=== PATIENT | female | born 1995 | race Caucasian/White ===

== ENCOUNTER 2016-10-16 19:03 | Emergency (ER) | payer BC, OTHER ==
[~2016-10-16] VITALS: Ht 172.7 cm; Wt 133.6 kg
[2016-10-16 19:19] VITALS: TEMP 37.2; Ht 172.7 cm; Wt 133.6 kg
[2016-10-16] MEDS ORDERED: PENI-82 PO (20:51)
--- NOTE | 2016-10-16 21:07 | EMERGENCY ROOM VISIT NOTE ---
History Report prepared by Rakan: Florian Chamberlain Under the Supervision of: Dr. Reg Jarrett M.D. First contact with patient: 20:52 Chief Complaint: CARDIAC ASSESSMENT Stated Complaint: CHEST PAINS COME AND GO OVER A WEEK History of Present Illness The patient is a 20 year old female who presents to the Emergency Room with complaints of worsening on and off chest pain for the past week. The patient states that she has episodes of chest pain that last for less than a minute, and they have been becoming more frequent. She additionally states that a week ago her left arm went numb. The patient also states that it is worsened after eating and while breathing. She additionally states that she is short of breath when the episodes of chest pain happen. The patient additionally states that she has a sore throat from strep throat, and she is nauseous, and is on antibiotics. The patient denies any chronic medical problems. She denies any leg pain, swelling, cough, and fever. Also, she denies any recent long trip or history of blood clots. Source of History: patient, spouse/significant other Onset: past week Position: chest Timing: worsening, other (on and off) Modifying Factors (Worsening): eating, breathing Associated Symptoms: + SOB, + numbness, No cough, No fevers Review of Systems See HPI for pertinent positives & negatives. A total of 10 systems reviewed and were otherwise negative. Past Medical & Surgical Medical Problems: (1) No pertinent past medical history Old medical records were reviewed. Nurse's notes were reviewed and I agree with. Denies history of cardiac disease, pulmonary disease, blood clots Family History Diabetes mellitus FH: heart disease Hypertension Kidney disease Kidney stones Social History Smoking Status: Never Smoker Marital Status: Housing Status: lives with family Occupation Status: employed Current/Historical Medications Scheduled Penicillin V Potassium (Veetids), 500 MG PO BID Allergies Coded Allergies: No Known Allergies (Unverified , 10/16/16) Physical Exam Vital Signs Date Time Temp Pulse Resp B/P Pulse Ox O2 Delivery O2 Flow Rate FiO2 10/17/16 00:49 83 20 147/99 98 10/16/16 23:01 76 19 107/70 97 Room Air 10/16/16 22:01 81 16 131/71 98 Room Air 10/16/16 21:12 85 10/16/16 21:01 69 17 134/94 100 Room Air 10/16/16 20:58 Room Air 10/16/16 20:58 85 24 166/93 97 Room Air 10/16/16 20:52 Room Air 10/16/16 19:19 37.2 63 20 135/85 100 Room Air Physical Exam General: Non-ill appearing young female in no acute distress. HEENT: Normal cephalic atraumatic. Pupils are equal round and reactive to light. Extraocular movements are intact. Oropharynx is pink with moist mucous membranes. No swelling of the mouth lips or tongue. Neck: Supple with a midline trachea. No meningeal signs or stiffness, no JVD or bruits. No Stridor. Chest: No shingles or rash. Not significantly tender. Clear to auscultation bilaterally. No wheezes or rhonchi. No increased work of breathing. Heart: regular rate and rhythm. Abdomen: Soft nontender, nondistended without rebound guarding or rigidity. Extremities: No cyanosis clubbing or edema. No calf tenderness or assymetry Spine/Back. Non tender to palpation. No CVA tenderness Skin: Good turgor without rashes. Neurologic exam: Cranial nerves two through 12 are intact. Motor and sensation are intact and symmetrical throughout. Medical Decision & Procedures ER Provider Diagnostic Interpretation: Radiology results as stated below per my review and radiologist interpretation: CTA CHEST: Comparison is made to chest radiograph dated 10/16/16. There is no evidence of acute pulmonary embolism, Main pulmonary artery enlargement, or right heart strain. Thoracic aorta is normal in course and caliber. Heart is normal in size , without pericardial effusion. There is small multi-compartmental mediastinal lymph nodes, not significant by size criteria. The lungs demonstrate mild patchy mosaic attenuation with geographic areas of lucency, which may represent obliterative small airways coracoclavicular vascular disease, but can also be a normal, incidental finding. No pleural effusion or pneumothorax. No pulmonary nodule or mass. There is less upper abdomen unremarkable. No acute osseous findings. Radiologist: Charles Cantu M.D. Laboratory Results 10/16/16 20:55 Red Blood Count 4.51, Mean Corpuscular Volume 88.2, Mean Corpuscular Hemoglobin 28.6, Mean Corpuscular Hemoglobin Concent 32.4, Mean Platelet Volume 8.9, Neutrophils (%) (Auto) 59.8, Lymphocytes (%) (Auto) 26.6, Monocytes (%) (Auto) 9.8, Eosinophils (%) (Auto) 3.2, Basophils (%) (Auto) 0.4, Neutrophils # (Auto) 6.26, Lymphocytes # (Auto) 2.78, Monocytes # (Auto) 1.03, Eosinophils # (Auto) 0.33, Basophils # (Auto) 0.04 10/16/16 20:55 Test 10/16/16 20:55 10/16/16 21:05 White Blood Count 10.46 K/uL (4.8-10.8) Red Blood Count 4.51 M/uL (4.2-5.4) Hemoglobin 12.9 g/dL (12.0-16.0) Hematocrit 39.8 % (37-47) Mean Corpuscular Volume 88.2 fL (80-100) Mean Corpuscular Hemoglobin 28.6 pg (25-34) Mean Corpuscular Hemoglobin Concent 32.4 g/dl (32-36) Platelet Count 318 K/uL (130-400) Mean Platelet Volume 8.9 fL (7.4-10.4) Neutrophils (%) (Auto) 59.8 % Lymphocytes (%) (Auto) 26.6 % Monocytes (%) (Auto) 9.8 % Eosinophils (%) (Auto) 3.2 % Basophils (%) (Auto) 0.4 % Neutrophils # (Auto) 6.26 K/uL (1.4-6.5) Lymphocytes # (Auto) 2.78 K/uL (1.2-3.4) Monocytes # (Auto) 1.03 K/uL (0.11-0.59) Eosinophils # (Auto) 0.33 K/uL (0-0.5) Basophils # (Auto) 0.04 K/uL (0-0.2) RDW Standard Deviation 42.9 fL (36.4-46.3) RDW Coefficient of Variation 13.2 % (11.5-14.5) Immature Granulocyte % (Auto) 0.2 % Immature Granulocyte # (Auto) 0.02 K/uL (0.00-0.02) Anion Gap 10.0 mmol/L (3-11) Est Creatinine Clear Calc Drug Dose 174.2 ml/min Estimated GFR () 134.2 Estimated GFR (Non- 115.8 BUN/Creatinine Ratio 14.2 (10-20) Calcium Level 8.5 mg/dl (8.5-10.1) Total Bilirubin 0.3 mg/dl (0.2-1) Direct Bilirubin < 0.1 mg/dl (0-0.2) Aspartate Amino Transf (AST/SGOT) 17 U/L (15-37) Alanine Aminotransferase (ALT/SGPT) 34 U/L (12-78) Alkaline Phosphatase 82 U/L (45-117) Total Creatine Kinase 105 U/L (26-192) Creatine Kinase MB < 0.5 ng/ml (0.5-3.6) Creatine Kinase MB Ratio (0-3.0) Total Protein 8.0 gm/dl (6.4-8.2) Albumin 3.7 gm/dl (3.4-5.0) Lipase 109 U/L (73-393) Human Chorionic Gonadotropin, Qual NEG (NEG) Bedside D-Dimer > 450 ng/mlFEU (0-450) Bedside Troponin I 0.000 ng/ml (0-0.045) Lab results as reviewed by me ECG Indication: chest pain Rate (beats per minute): 70 Rhythm: normal sinus, other (sinus arrhythmia) Findings: no acute ischemic change, no ectopy Comparison ECG Date: no prior available ED Course 2051: Past medical records reviewed. The patient was evaluated in room C11, and a complete history and physical examination were performed. 2210: I discussed getting a CT scan and the risks and benefits, and she agrees with the plan. 0031: Upon reevaluation, the patient is feeling better. I discussed the results and treatment plan with her. She verbalized agreement of the treatment plan. The patient was discharged home. Medical Decision Differentials include, but are not limited to; GERD, musculoskeletal, acute coronary syndrome, arrhythmia, PE, electrolyte or metabolic abnormality. This patient comes in as described above. She was placed on a panel monitor in room C11. She has been having intermittent chest pain for about a week and it only lasts a second or 2 .she looks well on exam. She's not hypoxemic and has stable vital signs. EKG does not suggest acute coronary syndrome or arrhythmia. Chest x-ray shows no evidence of pneumothorax, CHF, or pneumonia. She has no acute electrolyte or metabolic abnormalities and has nothing to suggest sepsis. She is not . Her d-dimer was elevated and in light of this, I did do a chest CT after explaining the risks and the benefits the patient who freely consents. The CAT scan shows no evidence of PE. She has some nonspecific findings. I do not think clinically she has pneumonia and she will be discharged home. I encouraged her follow-up with her regular doctor and return to the ER if: Worsening of symptoms, shortness of breath, any new problems or concerns. She was happy with the plan and was discharged to home Impression Primary Impression: Precordial chest pain Scribe Attestation The scribe's documentation has been prepared under my direction and personally reviewed by me in its entirety. I confirm that the note above accurately reflects all work, treatment, procedures, and medical decision making performed by me. Departure Information Dispostion Home / Self-Care Referrals Will Oakley M.D.([facility]) (PCP) Forms IMPORTANT VISIT INFORMATION Patient Instructions My [facility] Additional Instructions Rest. Drink plenty of fluids. Return if worsening of symptoms, shortness of breath, fever or chills, any new problems or concerns Follow-up with your doctor in 1-2 days for recheck.
[2016-10-16 21:10] LABS: BASO % 0.4 %; BASO ABS # 0.04 K/uL (0-0.2); COMPLETE YES; EOS % 3.2 %; HEMATOCRIT 39.8 % (37-47); IG% 0.2 %; LYMPH % 26.6 %; LYMPH ABS # 2.78 K/uL (1.2-3.4); MEAN CELL VOLUME 88.2 fL (80-100); MEAN CORPUSCULAR HEMOGLOBIN 28.6 pg (25-34); MEAN CORPUSCULAR HGB CONC 32.4 g/dl (32-36); MEAN PLATELET VOLUME 8.9 fL (7.4-10.4); MONO % 9.8 %; NEUT % 59.8 %; PLATELET COUNT 318 K/uL (130-400); RED BLOOD COUNT 4.51 M/uL (4.2-5.4); WHITE BLOOD COUNT 10.46 K/uL (4.8-10.8)
--- NOTE | 2016-10-16 21:27 | DIAGNOSTIC IMAGING REPORT ---
CHEST ONE VIEW PORTABLE CLINICAL HISTORY: CHEST PAIN dyspnea COMPARISON STUDY: No previous studies for comparison. FINDINGS: The bones soft tissues and hemidiaphragms are normal. The cardiomediastinal silhouette is normal. The lungs are clear. The pulmonary vasculature is normal. IMPRESSION: Negative chest. Electronically signed by: Keith Wei M.D. 10/16/2016 9:25 PM Dictated Date/Time: 10/16/2016 9:25 PM
[2016-10-16 21:30] LABS: PREG INTERNAL NEGATIVE QC NEG CLEAR BACKGROUND; PREG INTERNAL POSITIVE QC POS CONTROL LINE
[2016-10-16] MEDS ORDERED: OPTIRAY 320 IV PRN (22:30)
[2016-10-16 23:00] LABS: BLOOD UREA NITROGEN 11 mg/dl (7-18); BUN/CREATININE RATIO 14.2 (10-20); CALCIUM 8.5 mg/dl (8.5-10.1); CARBON DIOXIDE 29 mmol/L (21-32); CHLORIDE 104 mmol/L (98-107); CREATININE 0.74 mg/dl (0.60-1.20); GLUCOSE 91 mg/dl (70-99); POTASSIUM 3.6 mmol/L (3.5-5.1); SODIUM 143 mmol/L (136-145)
[2016-10-16 23:14] LABS: ALKALINE PHOSPHATASE 82 U/L (45-117); ALT/SGPT 34 U/L (12-78); AST/SGOT 17 U/L (15-37)
[2016-10-17 00:49] VITALS: BP 147/99; PULSE 83; O2SAT 98
--- NOTE | 2016-10-17 07:14 | DIAGNOSTIC IMAGING REPORT ---
CHEST CTA for PULMONARY ARTERIES CT DOSE: 719.96 mGy.cm HISTORY: Atypical chest pain. TECHNIQUE: Multiaxial CT images of the chest were performed following the intravenous administration of contrast to evaluate the pulmonary arteries. Maximal intensity projection images were also obtained. COMPARISON STUDY: None. FINDINGS: There is a normal caliber thoracic aorta with no evidence for dissection. There is no evidence for pulmonary embolus. No pleural effusions. No pneumothorax. A 1 cm left thyroid nodule. Hepatic steatosis. The spleen and adrenal glands appear unremarkable. A few scattered areas of air trapping within the lungs which could be a normal variant or related to small airways disease. No mediastinal or hilar lymphadenopathy. The central airways are patent. IMPRESSION: No evidence for pulmonary embolus. A few scattered areas of air trapping within the lungs which could be a normal variant or related to small airways disease. A 1 cm left thyroid nodule. Electronically signed by: Jeramy Koehler M.D. 10/17/2016 7:13 AM Dictated Date/Time: 10/17/2016 7:09 AM
== END 2016-10-17 00:50 | disposition home or self-care (01) ==
LOC: C.EDB 19:04 → C.EDC 10-17 00:50
DX: R07.2 Precordial pain (principal); Z83.3 Family history of diabetes mellitus; Z82.49 Family history of ischemic heart disease and other diseases of the circulatory system; Z84.1 Family history of disorders of kidney and ureter

== ENCOUNTER 2018-03-08 07:38 | Inpatient (IN) | payer BC, OTHER ==
[~2018-03-08] VITALS: Ht 172.7 cm; Wt 133.0 kg
[~2018-03-08 07:38] MED LIST: PENI-82 PO
[2018-03-08] MEDS ORDERED: DEXTROSE 5% 1000ML 1,000 ML IV SCH (08:08)
[2018-03-08] MEDS ORDERED: LACTATED RINGER'S 1000ML 1,000 ML IV PRN (08:08)
[2018-03-08] MEDS ORDERED: SODIUM CHLORIDE 0.9% 1000ML 1,000 ML IV SCH (08:08)
[2018-03-08] MEDS ORDERED: LACTATED RINGER'S 1000ML 500 ML IV PRN ×2 (08:11→12:35)
[2018-03-08] MEDS ORDERED: OXYTOCIN 30 UNITS/500ML NSS IV PRN ×2 (08:15→17:45)
[2018-03-08] MEDS ORDERED: DEXTROSE 50% 50 ML SYR IV PRN (08:15)
[2018-03-08 08:31] LABS: HEMATOCRIT 33.2 % (37-47); MEAN CELL VOLUME 84.7 fL (80-100); MEAN CORPUSCULAR HEMOGLOBIN 28.1 pg (25-34); MEAN CORPUSCULAR HGB CONC 33.1 g/dl (32-36); MEAN PLATELET VOLUME 9.2 fL (7.4-10.4); PLATELET COUNT 256 K/uL (130-400); RED CELL DISTRIBUTION WIDTH CV 14.9 % (11.5-14.5); RED CELL DISTRIBUTION WIDTH SD 45.9 fL (36.4-46.3); WHITE BLOOD COUNT 9.08 K/uL (4.8-10.8)
[2018-03-08 09:06] LABS: ALBUMIN 2.6 gm/dl (3.4-5.0); ALKALINE PHOSPHATASE 123 U/L (45-117); ALT/SGPT 17 U/L (12-78); AST/SGOT 18 U/L (15-37); BLOOD UREA NITROGEN 11 mg/dl (7-18); CALCIUM 8.8 mg/dl (8.5-10.1); CARBON DIOXIDE 21 mmol/L (21-32); CREATININE 0.55 mg/dl (0.60-1.20); GLUCOSE 68 mg/dl (70-99); POTASSIUM 3.7 mmol/L (3.5-5.1); SODIUM 136 mmol/L (136-145); TOTAL PROTEIN 6.9 gm/dl (6.4-8.2)
[2018-03-08] MEDS ORDERED: PRENTAB26 PO (09:12)
[2018-03-08] MEDS ORDERED: INSU100I2 SQ (09:12)
[2018-03-08] MEDS ORDERED: INSU100I23 SQ (09:12)
[2018-03-08 09:16] VITALS: Ht 172.7 cm; Wt 133.0 kg
[2018-03-08] MEDS: LACTATED RINGER'S 1000ML 1,000 ML IV SCH ×2 (09:27→15:46)
[2018-03-08] MEDS ORDERED: INSULIN REGULAR 250 UNITS in SODIUM CHLORIDE 0.9% 250ML 250 ML IV SCH (09:30)
[2018-03-08] MEDS ORDERED: BUPIVACAINE 0.25% 30 ML VIAL ONE (11:56)
[2018-03-08] MEDS ORDERED: EpHEDrine SULFATE INJ 50 MG/ML AMP ONE (11:57)
[2018-03-08] MEDS ORDERED: FENTANYL 2MCG/ML ROPIV 1.25MG/ML 100ML BAG ONE (11:57)
[2018-03-08] MEDS ORDERED: FENTANYL CITRATE INJ 50 MCG/1 ML 2 ML VIAL ONE (11:57)
[2018-03-08] MEDS ORDERED: NALOXONE HCL INJ 1 MG in SODIUM CHLORIDE 0.9% 1000ML 1,000 ML IV PRN (12:35)
[2018-03-08] MEDS ORDERED: FENTANYL 2MCG/ML ROPIV 1.25MG/ML 100ML BAG EPI PRN (12:45)
[2018-03-08] MEDS ORDERED: ONDANSETRON INJ 2 MG/ML 2 ML VIAL IV PRN (12:45)
[2018-03-08] MEDS ORDERED: NALBUPHINE HCL INJ 10 MG/ML 1ML AMP IV PRN (12:45)
[2018-03-08] MEDS ORDERED: EpHEDrine SULFATE INJ 50 MG/ML AMP IV PRN (12:45)
[2018-03-08] MEDS ORDERED: NALOXONE HCL INJ 0.4 MG/1 ML VIAL/CARP IV PRN (12:45)
[2018-03-08] MEDS ORDERED: DiphenhydrAMINE HCL 50 MG/ML VIAL IV PRN (12:45)
[2018-03-08] MEDS ORDERED: LACTATED RINGER'S 1000ML 1,000 ML IV SCH (17:32)
[2018-03-08] MEDS ORDERED: ACETAMINOPHEN 325 MG TAB PO PRN (17:45)
[2018-03-08] MEDS ORDERED: MEASLES, MUMPS & RUBELLA VIRUS VIAL SQ. ONE (17:45)
[2018-03-08] MEDS ORDERED: DIPHTHERIA/TETANUS/PERTUSSIS 0.5 ML SYR/VIAL IM. ONE (17:45)
[2018-03-08] MEDS ORDERED: OXYCODONE/ACETAMINOPHEN 5-325 TAB PO PRN (17:45)
[2018-03-08] MEDS ORDERED: HYDROCORTISONE ACETATE 25 MG SUPP PR PRN (17:45)
[2018-03-08] MEDS ORDERED: LANOLIN OINT EXT PRN (17:45)
[2018-03-08] MEDS ORDERED: SUPERCREAM 0.870 % 15GM JAR EXT PRN (17:45)
[2018-03-08] MEDS ORDERED: BENZOCAINE 20% AER SPR 82.5 GM CAN EXT PRN (17:45)
--- NOTE | 2018-03-08 18:40 | DELIVERY SUMMARY ---
DATE OF OPERATION: 03/08/2018 DATE OF DELIVERY: 03/08/2018 TIME OF DELIVERY OF BABY: 17:06 p.m. TIME OF DELIVERY OF PLACENTA: 17:27 p.m. DETAILS OF DELIVERY: The patient was found to be fully dilated and desired to push. She pushed through 4 contractions and delivered the head without difficulty. There was nuchal cord around the neck x2. Those were reduced. The Shoulders were delivered with minimal traction. Baby was handed off to the mother where mouth and nose were suctioned. Cord was clamped x2 and cut at 1-minute delay, and then cord blood was obtained. Vagina and perineum were checked for lacerations. There was a small second-degree laceration in the posterior vaginal wall. It was confirmed to be second degree with a rectal exam. Excellent sphincter tone was noted. Gloves were changed. There were first-degree labial lacerations bilaterally. The second-degree laceration was repaired with 2-0 Vicryl in a running-locked fashion and then the labial lacerations were repaired with 3-0 Vicryl on SH needle in a running fashion. Excellent hemostasis was achieved. Placenta was found to be in the vagina and delivered spontaneously as intact and complete. Fundus was firm. Lower segment was cleared off all clots and debris. EBL was 250 mL. Mom and baby tolerated the procedure well. Sponge, lap, needle count was correct x2. Baby was a viable female . Apgars 8/9. Weight is 2660 gr. No complications happened, and I was present during the whole procedure. I attest to the content of the Intraoperative Record and any orders documented therein. Any exceptions are noted below. MTDD
--- NOTE | 2018-03-08 18:58 | Anesthesia Procedure Note ---
Anesthesia Epidural Removal Nt Date & Time Mar 08, 2018 at 18:57 Vital Signs Pain Intensity: 0.0 Notes Mental Status: alert / awake / arousable, participated in evaluation Nausea / Vomiting: adequately controlled Pain: adequately controlled Airway Patency, RR, SpO2: stable & adequate BP & HR: stable & adequate Hydration State: stable & adequate Neuraxial Anesthesia: was administered, sensory block is resolving Anesthetic Complications: no major complications apparent, pt satisfied with anesthetic care Epidural: removed without complications, with tip intact Notes: small amount of bruising around epidural site. no back pain. no active bleeding.
[2018-03-08 19:55] VITALS: BP 102/55; PULSE 103; TEMP 36.8
[2018-03-08] MEDS ORDERED: DOCUSATE SODIUM 100 MG CAP PO SCH (20:00)
[2018-03-08] MEDS: IBUPROFEN 600 MG TAB PO PRN (23:26)
[2018-03-08 23:30] VITALS: BP 114/73; PULSE 87; TEMP 36.8
[2018-03-09 04:30] VITALS: BP 112/74; PULSE 84; TEMP 36.8
[2018-03-09 07:38] LABS: HEMATOCRIT 33.4 % (37-47); HEMOGLOBIN 10.6 g/dL (12.0-16.0)
[2018-03-09 08:00] VITALS: BP 111/73; PULSE 81; TEMP 36.7; O2SAT 99
[2018-03-09] MEDS ORDERED: PRENATAL VITAMIN TAB PO SCH (08:00)
[2018-03-09] MEDS ORDERED: FERROUS SULFATE 325 MG TAB PO SCH (08:00)
[2018-03-09] MEDS: IBUPROFEN 600 MG TAB PO PRN ×2 (09:02→17:00)
[2018-03-09] MEDS ORDERED: MTR600X PO (09:28)
--- NOTE | 2018-03-09 09:29 | Discharge Instructions ---
Discharge Instructions Date of Service Mar 09, 2018. Admission Reason for Admission: IUP Discharge Discharge Diagnosis / Problem: term delivered Discharge Goals Goal(s): Routine recovery after delivery Activity Recommendations Activity Limitations: as noted below Lifting Limitations: no more than 10 pounds Exercise/Sports Limitations: gradually increase as tolerated, until after follow-up appointment May Resume Sexual Activity: after follow-up appointment Shower/Bathe: no limitations Driving or Machine Use: resume 3 days after discharge . Instructions / Follow-Up Instructions / Follow-Up ACTIVITY RECOMMENDATIONS: * Gradual return to full activity over the next 2-3 weeks. * No lifting - nothing heavier than baby over the next 2-3 weeks. * Do not engage in vigorous exercise, sexual activity or sports until cleared by your physician. * Do not drive or operate any motorized equipment until cleared by your physician. * You may shower/bathe daily. BREAST CARE: If you are not breast feeding: * Wear a supportive bra 24 hours a day for one to two weeks. * Avoid stimulating your breasts and nipples as much as possible during the first few weeks after delivery. * When taking a shower, have the warm water hit your back, not breasts. * When your breasts feel full, apply ice packs. Usually three to four times a day helps ease the discomfort. * Take a mild pain medication (Tylenol/Motrin) when you are uncomfortable. If breast feeding: * Use breast milk to lubricate nipples. Lansinoh cream may be used for sore nipples. You do not need to remove cream prior to breast feeding. If using a different brand of cream, check the label for directions regarding removal of cream prior to nursing. * Wear a supportive bra. * If having problems with breasts or breast feeding, call a access consultant or your health care provider. EPISIOTOMY CARE: After delivery, if you have an episiotomy (stitches), the following steps will ease discomfort and aid healing. * For the first 24 hours after delivery, place ice packs next to your episiotomy to help reduce swelling. * After the first 24 hour-period, sitz baths, either portable or in the tub, are suggested. A shower with a shower arm sprayed over the episiotomy may be comforting. * Juhi care should be done after each voiding and bowel movement. Squirt warm water from a plastic bottle over the perineum (region of the body between the anus and urinary opening) and pat dry. * Use Dermoplast to ease discomfort. Shake container. [place] directly over the episiotomy. * Place a Tucks on a clean sanitary pad next to your episiotomy. OVER THE COUNTER MEDICATION: * For discomfort or pain, you may use Acetaminophen (Tylenol), Ibuprofen (Advil ), or Naproxen (Aleve) following the package directions. * For constipation you may use Colace following the package directions. SPECIAL CARE INSTRUCTIONS: When you are discharged from the hospital, it is important for you to follow the instructions listed below: * During the first week at home, you should be able to care for yourself and your baby. In addition, the usual light household activities are encouraged. * Limit your activities to the way you feel. Do not try to clean the house or move furniture. Be sensible. * If you actively engage in sports and have done so up until the time of your delivery, you may resume these activities as soon as you feel able. This may take up to one month or even longer. Use good judgment. * Continue to take your vitamins for at least six weeks after the of your baby. * Your diet need not be limited unless you were on a special diet before your delivery. Breast-feeding mothers need around 2500 calories per day and at least 64-80 ounces of fluid per day (8 to 10 glasses). * You should eat foods from the four major food groups. Crash diets or fad diets are to be avoided. Eating lean meats, fresh fruits and vegetables, low-fat dairy products, high fiber foods and a regular exercise program, will help you get back to your pre- weight without putting your health at risk. * Constipation is sometimes a problem after delivery. Take a mild laxative as needed. If breast feeding, Milk of Magnesia is acceptable to use. You may use a suppository or Fleets enema if no episiotomy. * A daily shower or tub bath is suggested. Be sure to thoroughly and gently dry the perineum. * A bloody vaginal discharge will usually continue until around four weeks post . A small amount of bleeding may continue for as long as six weeks. Vaginal discharge changes from the bright red bleeding after delivery to pink then brownish and finally yellowish-pink before becoming white and disappearing. * Bleeding may increase with activity. Your first period may come in 4-8 weeks. If you are breast feeding, your period may be delayed even longer. * Zephyr (sex) can begin whenever both you and your partner feel comfortable and do not have any form of genital infection. It is recommended that you wait until after your return appointment and discuss with your physician. If you have questions, please talk to your health care practitioner. A condom should be used to prevent infection and . * Foreplay, gentle intercourse and lubrication is very important the first several times to prevent pain. A water-based lubricant such as K-Y jelly or Astroglide may be used. * Tampons may be used six weeks after delivery. * Douching should be avoided for 6 weeks after delivery. * If you have RH negative blood and your baby is RH positive, you will receive RHOGAM by injection prior to discharge. The nurse will give you a card to keep with you that has the date and place that you received RHOGAM after delivery. * During your care, you had a Rubella screen done to check for the presence of rubella antibodies in your blood. If your test was negative, you will receive a Rubella vaccine prior to discharge. This vaccine may cause a fever, soreness at the injection site and flu-like symptoms. If these symptoms persist, notify your health care practitioner. is not advised for three months after a Rubella vaccine. There is a higher chance of having a baby with defects if conceived within three months of getting the vaccine. * If you were discharged 24 hours from delivery or before 48 hours: Visiting nurses will come to your home 48 hours after discharge to assess you and your baby. The visiting nurse will meet with you while you are in the hospital to arrange a time and get directions to your home. * Verbalizes understanding of car seat law as reviewed with patient nursing. * Car Seat hand-out given and reviewed with patient by nursing. * Shaken baby information reviewed with patient by nursing. Call you doctor if: * Heavy bleeding (saturating several pads an hour) or passing clots the size of your fist. * A fever >101 degrees F (38.3 degrees C) on two occasions four hours apart and/or chills. * Unusual pain in the pelvic or vaginal areas. * "Baby Blues" lasting longer than two weeks. If you have any questions or concerns, call your health care practitioner at . FOLLOW-UP VISIT: * Please call the office at to schedule a 6 week examination. It is important you keep this appointment. * It is important for you to make arrangements for either yearly or twice yearly check-ups thereafter. Current Hospital Diet Patient's current hospital diet: Regular OB Diet Discharge Diet Recommended Diet: Regular OB Diet Fluid Restriction: None Procedures Procedures Performed: vaginal delivery Pending Studies Studies pending at discharge: no Medical Emergencies . Who to Call and When: Medical Emergencies: If at any time you feel your situation is an emergency, please call 911 immediately. . Non-Emergent Contact Non-Emergency issues call your: Primary Care Provider . . "Provider Documentation" section prepared by Benigno López. .
--- NOTE | 2018-03-09 09:31 | OB/GYN Progress Note ---
RN NEONATAL Progress Note Date of Service Mar 09, 2018. Subjective conversation w/ patient, physical exam Ambulation: ambulating normally Voiding: no voiding problems Passing Gas: Yes Diet Tolerance: Regular Diet Lochia: Small Feeding Type: Breast Feeding Objective Vital Signs Date Time Temp Pulse Resp B/P (MAP) Pulse Ox O2 Delivery O2 Flow Rate FiO2 03/09/18 08:00 36.7 81 16 111/73 (86) 99 Room Air 03/09/18 04:30 36.8 84 18 112/74 (87) 03/08/18 23:30 36.8 87 18 114/73 (87) 03/08/18 23:30 Room Air 03/08/18 19:55 36.8 103 20 102/55 (71) 03/08/18 19:55 Room Air Physical Exam General Appearance: WELL-APPEARING, NO APPARENT DISTRESS Abdomen: non tender, soft Fundus: Firm Extremities: non-tender, normal inspection, no pedal edema Laboratory Results Last 24 Hours Test 03/08/18 10:20 03/08/18 11:21 03/08/18 12:38 03/08/18 13:46 Bedside Glucose 62 mg/dl 69 mg/dl 75 mg/dl 65 mg/dl Test 03/08/18 14:54 03/08/18 15:50 03/08/18 16:50 03/09/18 07:13 Bedside Glucose 77 mg/dl 81 mg/dl 73 mg/dl Hemoglobin 10.6 g/dL Hematocrit 33.4 % Assessment and Plan Post- Day Number: 1 Continue Routine Care: discharged
[2018-03-09 11:39] VITALS: BP 93/57; PULSE 81; TEMP 36.7; O2SAT 99
[2018-03-09 15:25] VITALS: BP 105/71; PULSE 86; TEMP 36.7; O2SAT 98
[2018-03-09] MEDS ORDERED: MEASLES, MUMPS & RUBELLA VIRUS VIAL SQ. ONE (18:13)
[2018-03-09 19:50] VITALS: BP_DIAS 71; PULSE 86; TEMP 36.7
[2018-03-09] MEDS ORDERED: BISACODYL 5 MG TABEC PO SCH (20:00)
[2018-03-10] MEDS ORDERED: BISACODYL 10 MG SUPP PR PRN (07:00)
== END 2018-03-09 19:50 | disposition home or self-care (01) | DRG 775 ==
LOC: C.LD 07:38 → C.OBG 20:52
PROVIDERS: ADMIT Obstetrics & Gynecology; ATTEND Obstetrics & Gynecology
PROC: 10E0XZZ Delivery of Products of Conception, External Approach (ICD-10-PCS; principal; 2018-03-08)
PROC: 3E033VJ Introduction of Other Hormone into Peripheral Vein, Percutaneous Approach (ICD-10-PCS; principal; 2018-03-08)
PROC: 10907ZC Drainage of Amniotic Fluid, Therapeutic from Products of Conception, Via Natural or Artificial Opening (ICD-10-PCS; principal; 2018-03-08)
PROC: 0KQM0ZZ Repair Perineum Muscle, Open Approach (ICD-10-PCS; principal; 2018-03-08)
DX: O24.424 Gestational diabetes mellitus in childbirth, insulin controlled (principal); O69.81X0 Labor and delivery complicated by cord around neck, without compression, not applicable or unspecified; O70.1 Second degree perineal laceration during delivery; O99.214 Obesity complicating childbirth; E66.9 Obesity, unspecified; Z68.41 Body mass index [BMI] 40.0-44.9, adult; Z3A.39 39 weeks gestation of pregnancy; Z37.0 Single live birth; Z79.4 Long term (current) use of insulin

== ENCOUNTER 2019-01-24 17:46 | Inpatient (IN) ==
[2019-01-24] MEDS ORDERED: HYDROmorphone INJ 1 MG/ML SYRINGE IM PRN (18:26)
[2019-01-24] MEDS: LACTATED RINGER'S 1,000 ML IV PRN (18:49)
[2019-01-24] MEDS: ONDANSETRON INJ 2 MG/ML 2 ML VIAL IV PRN ×2 (18:50→23:54)
[2019-01-24 19:00] LABS: Basophils # (auto) 0.01 K/uL (0-0.2); Basophils % (auto) 0.1 %; Eosinophils # (auto) 0.04 K/uL (0-0.5); Eosinophils % (auto) 0.3 %; Hematocrit (blood only) 34.3 % (37-47); Hemoglobin 11.5 g/dL (12.0-16.0); Immature Granulocytes # (auto) 0.05 K/uL (0.00-0.02); Immature Granulocytes % (auto) 0.3 %; Lymphocytes # (auto) 1.45 K/uL (1.2-3.4); Mean Corpuscular Volume 85.5 fL (80-100); Mean Platelet Volume 9.4 fL (7.4-10.4); Monocytes # (auto) 1.37 K/uL (0.11-0.59); Monocytes % (auto) 9.5 %; Neutrophils # (auto) 11.56 K/uL (1.4-6.5); Neutrophils % (auto) 79.8 %; Platelet Count 235 K/uL (130-400); RDW Coefficient of Variation 14.3 % (11.5-14.5); RDW Standard Deviation 44.2 fL (36.4-46.3); Red Blood Count 4.01 M/uL (4.2-5.4); White Blood Count 14.48 K/uL (4.8-10.8)
[2019-01-24 19:04] LABS: Mean Corpuscular Hgb Conc 33.5 g/dL (32-36)
[2019-01-24 19:12] LABS: Potassium 3.3 mmol/L (3.5-5.1)
--- NOTE | 2019-01-24 19:50 | Ultrasound Report ---
ULTRASOUND KIDNEYS AND BLADDER CLINICAL HISTORY: Right flank pain. . COMPARISON STUDY: Renal ultrasound dated 01/21/2019. TECHNIQUE: Real-time, grayscale, and color flow sonography of the kidneys and bladder is performed. I mages are reviewed in the transverse and longitudinal planes. FINDINGS: Kidneys: The kidneys appear slightly enlarged and are normal in echotexture. The right kidney measure s 15.7 cm in length and the left kidney measures 14.3 cm in length. There is mild right-sided hydrone phrosis. No hydronephrosis is seen on the left. No shadowing renal calculi are identified. There is n o sonographic evidence of contour deforming renal mass lesion. No perinephric fluid is identified. Bladder: The bladder is decompressed and could not be evaluated. IMPRESSION: 1. There has been no significant change from 01/21/2019. Right-sided hydronephrosis persists. 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 Although no shadowing renal calculi are identified , nephrolithiasis would be impossible to exclude. Clinical correlation will be required. 2. There is no left-sided hydronephrosis. 3. The bladder was decompressed and could not be evaluated. Electronically signed by: Tez Carr M.D. 01/24/2019 7:49 PM
[2019-01-24] MEDS: cefTRIAXone SODIUM 2,000 MG in DEXTROSE 5% 50 ML IV SCH (21:22)
[2019-01-24] MEDS: DOCUSATE SODIUM 100 MG CAP PO SCH (21:27)
[2019-01-24] MEDS ORDERED: HYDROmorphone INJ 1 MG/ML SYRINGE IV PRN (22:04)
[2019-01-24] MEDS: OXYCODONE/APAP 7.5/325MG TAB PO PRN (23:54)
--- NOTE | 2019-01-25 01:18 | Consultation Report ---
DATE OF CONSULTATION: 01/24/2019 CHIEF COMPLAINT: Right flank pain. HISTORY OF PRESENT ILLNESS: This is a 23-year-old female 34 weeks , morbid obesity, who presents with right flank pain. The patient says that she has developed this pain about last Monday, but it resolved, but since Monday it is constant and on Monday she came to the ER, although workup was done which was unrevealing,with renal ultrasound showing right hydronephrosis possibly mass effect from gravid uterus or from renal stone and she was sent home, but since then pain is not getting better. She went to [facility] yesterday and was given a Percocet. She had some nausea and she had episode of vomiting. When she vomited she had some epistaxis, but that resolved. As symptoms are not getting better she came to the hospital again today. Her monitoring was done in [facility] unit and also they are doing NST testing q. shift and that seemed to be okay. Renal ultrasound was done again today. This again showed same right hydronephrosis possibly from mass effect from the gravid uterus, nephrolithiasis would be impossible to exclude, so the patient was transferred to medical floor for further management and we were consulted. The patient states she still has some pain, moderate in severity, radiating from right flank, to groin. She also says she has some burning micturition now, afebrile. Urinalysis done on 01/21/2019 showed some hematuria. Otherwise, patient is doing fine. Denies any headache, no blurred vision. No earache, no runny nose, no sore throat, no difficulty swallowing. No chest pain, no shortness of breath, no cough. She is constipated since Monday . She has taken some stool softener today. Currently resting comfortably and hemodynamically stable. ALLERGIES: No known drug allergies. PAST MEDICAL HISTORY: As mentioned above. PAST SURGICAL HISTORY: None. MEDICATIONS: The patient is on vitamins and vitamin D. FAMILY HISTORY: Significant for father had heart attack. Mother had kidney stones. Paternal grandfather and maternal grandmother has heart disorder. SOCIAL HISTORY: . No smoking, alcohol or drug use. REVIEW OF SYMPTOMS: As per HPI. Rest of systems negative. PHYSICAL EXAMINATION: GENERAL: The patient is morbidly obese, not in acute distress. VITAL SIGNS: Temperature 36.7, pulse 86, respiratory rate 22, blood pressure 119/73, oxygen 96% room air. HEENT: Atraumatic. Extraocular muscles intact. NECK: No JVD. No neck masses. Supple. CARDIOVASCULAR: S1, S2, regular rate and rhythm, no murmur, no gallop. RESPIRATORY SYSTEM: Normal AP diameter. No accessory muscle use. No wheezing, no crackles. ABDOMEN: 34-week . Right CVA tenderness present. CENTRAL NERVOUS SYSTEM: Nonfocal. EXTREMITIES: No edema, no erythema. LABORATORY DATA: WBC 14, hemoglobin 11.5, hematocrit 34.3, platelets 235. Sodium 138, potassium 3.3, chloride 105, bicarbonate 23. Renal ultrasound shows no significant change from 01/21/2019, right-sided hydronephrosis persists. This may be related to mass effect from the gravid uterus, although no shadowing of renal calculi identified. Nephrolithiasis could be impossible to exclude, clinical correlation will be required. No left-sided hydronephrosis. The bladder was decompressed and could not be evaluated. ASSESSMENT AND PLAN: This is a 23-year-old female with a 34 weeks' , presents with right flank pain. 1. Right flank pain,right-sided hydronephrosis, possible mass effect from gravid uterus or possible kidney stone . Pain control, fluids ordered as per the [facility]. We will consult Urology for further opinion regarding the ultrasound findings. We will also get urinalysis and urine cultures. The patient is already started on Rocephin. 2. Leukocytosis. We will follow repeat labs in a.m.On Rocephin. 3. , 34 weeks . management as per [facility]. She is getting q. shift NST test. 4. Deep venous thrombosis prophylaxis and disposition as per [facility]. MTDD
[2019-01-25] MEDS: LACTATED RINGER'S 1,000 ML IV PRN (02:18)
[2019-01-25 05:41] LABS: Basophils # (auto) 0.02 K/uL (0-0.2); Basophils % (auto) 0.2 %; Eosinophils # (auto) 0.14 K/uL (0-0.5); Eosinophils % (auto) 1.4 %; Hematocrit (blood only) 30.1 % (37-47); Hemoglobin 9.9 g/dL (12.0-16.0); Immature Granulocytes # (auto) 0.03 K/uL (0.00-0.02); Immature Granulocytes % (auto) 0.3 %; Lymphocytes # (auto) 2.35 K/uL (1.2-3.4); Lymphocytes % (auto) 23.9 %; Mean Corpuscular Hgb Conc 32.9 g/dL (32-36); Mean Corpuscular Volume 86.2 fL (80-100); Mean Platelet Volume 9.4 fL (7.4-10.4); Monocytes # (auto) 1.19 K/uL (0.11-0.59); Monocytes % (auto) 12.1 %; Neutrophils # (auto) 6.12 K/uL (1.4-6.5); Neutrophils % (auto) 62.1 %; Platelet Count 199 K/uL (130-400); RDW Coefficient of Variation 14.5 % (11.5-14.5); Red Blood Count 3.49 M/uL (4.2-5.4); White Blood Count 9.85 K/uL (4.8-10.8)
[2019-01-25 05:55] LABS: Appearance Urine Cloudy (Clear); Bacteria Urine Automated Negative (Negative); Blood Urine Trace (Negative); Color Urine Dark Yellow; Epithelial Cell Urine Auto >30 /lpf (0-5); Glucose Urine UA Negative (Negative); Ketones Urine 1+ (Negative); Leukocyte Esterase Urine Trace (Negative); Nitrite Urine Negative (Negative); Protein Urine 1+ (Negative); Specific Gravity Urine 1.033 (1.000-1.030); Urobilinogen Urine Negative (Negative); pH Urine 5.5 (4.5-7.5)
[2019-01-25 05:58] LABS: Bilirubin Urine 1+ (Negative)
[2019-01-25 06:00] LABS: Ictotest Urine Positive (Negative)
[2019-01-25 06:07] LABS: BUN Creatinine Ratio 13.3 (10-20); Calcium 8.4 mg/dl (8.5-10.1); Creatinine Clr Calc Pharmacy 153.2 ml/min; Est GFR (African American) 121.4; Est GFR (Non-African American) 104.8; Magnesium 1.7 mg/dl (1.8-2.4); Potassium 3.4 mmol/L (3.5-5.1)
[2019-01-25 06:09] LABS: Cast Urine Automated 0 /lpf (0-5); Mucus Urine Present (None Prsent)
--- NOTE | 2019-01-25 07:46 | Urology Consultation ---
Date of Consultation January 25, 2019 Assessment & Plan (1) Right flank pain: 23yo F, 34 weeks with R sided hydro, renal colic. Renal US - right sided hydro stable on imaging from 01/21 and 01/24. No stone visible on ultrasound. Normal kidney function, lack of fevers are encouraging. Strain all urine, continue IVFs. Continue broad spectrum abx while awaiting UC&S. We discussed options. Pt understands that it is difficult to assess whether patient is definitively passing a stone without CT/MRI imaging. Pain appears to be well controlled presently, however she is requiring narcotic medication consistently to do so. We briefly discussed ureteral stenting/ureteroscopy with risk of premature labor vs nephrostomy for uncontrolled pain. Dr. Gregorio made aware of patient situation. Will assess patient soon. She is currently NPO awaiting our recommendations. Discussed options with patient . She wants to avoid intervention if possible and understands if pain worsens she will need Low dose CT to assess for stone and either stent , percutaneous nephrostomy or ureteroscopy if positive . Would be best to do this at 36 weeks if necessary to minimize risk of premature delivery. If pain is from hydro of then she would need to manage hernandez again or have stent or percutaneous nephrostomy Per Dr. Gregorio - evaluated patient with Dr. Grimm. Discussed that intervention may require transfer to [facility]. Try to minimize narcotic pain control. However if pain does come back again requiring evaluation, Dr. Gregorio would recommend low-dose non-contrast CT to help determine if intervention is required at that time. Pt verbalizes understanding. No surgical intervention today. Pt will continue to push hydration as allowable by [facility]. Strain urine if possible. Abx per primary team. History of Present Illness Reason for Consultation: 34 weeks , Right hydronephrosis Requesting Physician: Dr. Grimm Attending Physician: Anjel Grimm MD History of Present Illness 23yo F, whom is 34 weeks presents to [facility] last evening for intractable Right flank pain. She was first evaluated in ED on 01/21, she states "i thougth I was in labor". .Diagnosed with mild R hydronephrosis, no visible stones, discharged home. She was then evaluated by [facility], prescribed Percocet for pain control. Unfortunately pain was not controlled and made her very nauseated, prompting re-evaluation. She spent last night monitored in L&D on m onitoring, then moved to standard bed today. She appears nontoxic on exam, but sitting in pretzel position in bed which she states is most comfortable. Rating pain 3-4/10, right flank pain is constant, sharp. Pain is currently controlled on Percocet 7.5mg/zofran combination. She was able to get some rest last evening. She is now describing some dysuria. Denies urgency/frequency. Denies gross h ematuria. UA with trace leuks, no nitrites. UC&S is pending - currently on IV ceftriaxone. This is her 3rd , first time with complications. Both mother and father are stone formers, states "my mom would get them all the time". Unsure of composition. Allergies Allergy/AdvReac Type Severity Reaction Status Date / Time No Known Allergies Allergy Verified 01/24/19 18:20 Home Medications Home Medications Medication Instructions Recorded Confirmed Type PNV cmb#95-ferrous fumarate-FA 1 tab PO DAILY 01/20/19 01/24/19 History [] cholecalciferol (vitamin D3) 1,000 unit PO DAILY 01/20/19 01/24/19 History [Vitamin D3] Patient History Medical History Gestational diabetes Spontaneous vaginal delivery [facility] 2011, [facility] 2017 Family History Mother Kidney stones Social History Preferred Language: Vietnamese marital status: Current Living Situation: Family current occupational status: unemployed Feels Safe at Home: Yes Safety Concerns: Feels Safe At This Time Smoking Status: Never smoker Do You Dip or Chew Tobacco: No Second Hand Exposure: Yes Tobacco Cessation Education Requested by Patient: No Hx Alcohol Use: No Hx Substance Use: No Review of Systems Constitutional: no fever and no chills Eyes: + corrective lenses; no diplopia Ear, Nose, Mouth, Throat: no ear pain and no tinnitus Respiratory: no cough and no hemoptysis Cardiovascular: no chest pain and no dyspnea at rest Gastrointestinal: no abdominal pain, no nausea and no vomiting 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 Genitourinary: + dysuria and + flank pain (right); no urinary frequency, no urinary urgency and no nocturia Musculoskeletal: no neck pain Integumentary: no acne and no rash Neurologic: no falls and no paralysis Psychiatric: no hopelessness Endocrine: no fatigue and no polydipsia Hematologic / Lymphatic: no easy bleeding and no coagulopathy Physical Exam Constitutional: no acute distress and not thin uterus Eyes: no nystagmus ENMT: Ears: no hearing impairment and no TM abnormality Neck: trachea midline Respiratory: no respiratory distress and does not use accessory muscles Cardiovascular: Vessels: no JVD Chest (Breasts): Chest: no mass Gastrointestinal (Abdomen): Inspection/Auscultation: abdomen not distended and no abdominal edema Percussion/Palpation: abdomen soft; abdomen nontender Musculoskeletal: Head/Neck/Chest: normocephalic and head atraumatic Skin: no rashes and no ulcers Neurologic: awake; not confused and not obtunded Psychiatric: Orientation: alert and oriented x 3 Eye Contact: + not good eye contact Genitourinary: no CVA tenderness Results & Data Vital Signs (Past 12 Hours) Vital Signs Temp Pulse Pulse Resp BP BP Pulse Ox 01/25/19 07:03 36.7 C 71 20 111/74 97 01/24/19 22:47 36.7 C 22 119/73 96 01/24/19 19:52 86 133/71 Laboratory Results Laboratory Results - last 48 hr 01/24/19 01/24/19 01/25/19 18:47 18:47 05:15 WBC 14.48 H RBC 4.01 L Hgb 11.5 L Hct 34.3 L MCV 85.5 MCH 28.7 MCHC 33.5 RDW Std Deviation 44.2 RDW Coeff of Zia 14.3 Plt Count 235 MPV 9.4 Immature Gran % (Auto) 0.3 Neut % (Auto) 79.8 Lymph % (Auto) 10.0 [place] % (Auto) 9.5 Eos % (Auto) 0.3 Baso % (Auto) 0.1 Immature Gran # (Auto) 0.05 H Neut # (Auto) 11.56 H Lymph # (Auto) 1.45 [place] # (Auto) 1.37 H Eos # (Auto) 0.04 Baso # (Auto) 0.01 Sodium 138 Potassium 3.3 L Chloride 105 Carbon Dioxide 23 Anion Gap 10.0 BUN Creatinine Est Cr Clr Drug Dosing Est GFR ( Amer) Est GFR (Non-Af Amer) BUN/Creatinine Ratio Glucose Calcium Magnesium Urine Color Dark Yellow Urine Appearance Cloudy A Urine pH 5.5 Ur Specific [place] 1.033 H Urine Protein 1+ H Urine Glucose (UA) Negative Urine Ketones 1+ H Urine Blood Trace H Urine Nitrite Negative Urine Bilirubin 1+ H Urine Urobilinogen Negative Ur Leukocyte Esterase Trace H Urine WBC (Auto) 10-30 H Urine RBC (Auto) 5-10 H U Hyaline Cast (Auto) 0 U Epithel Cells (Auto) >30 H Urine Bacteria (Auto) Negative Urine Mucus Present A 01/25/19 01/25/19 05:19 05:19 WBC 9.85 RBC 3.49 L Hgb 9.9 L Hct 30.1 L MCV 86.2 MCH 28.4 MCHC 32.9 RDW Std Deviation 45.0 RDW Coeff of Zia 14.5 Plt Count 199 MPV 9.4 Immature Gran % (Auto) 0.3 Neut % (Auto) 62.1 Lymph % (Auto) 23.9 [place] % (Auto) 12.1 Eos % (Auto) 1.4 Baso % (Auto) 0.2 Immature Gran # (Auto) 0.03 H Neut # (Auto) 6.12 Lymph # (Auto) 2.35 [place] # (Auto) 1.19 H Eos # (Auto) 0.14 Baso # (Auto) 0.02 Sodium 137 Potassium 3.4 L Chloride 106 Carbon Dioxide 26 Anion Gap 5.0 BUN 10 Creatinine 0.79 Est Cr Clr Drug Dosing 153.2 Est GFR ( Amer) 121.4 Est GFR (Non-Af Amer) 104.8 BUN/Creatinine Ratio 13.3 Glucose 91 Calcium 8.4 L Magnesium 1.7 L Urine Color Urine Appearance Urine pH Ur Specific [place] Urine Protein Urine Glucose (UA) Urine Ketones Urine Blood Urine Nitrite Urine Bilirubin Urine Urobilinogen Ur Leukocyte Esterase Urine WBC (Auto) Urine RBC (Auto) U Hyaline Cast (Auto) U Epithel Cells (Auto) Urine Bacteria (Auto) Urine Mucus
[2019-01-25] MEDS: CHOLECALCIFEROL 1,000 UNITS TAB PO SCH (08:20)
[2019-01-25] MEDS: PRENATAL VITAMIN 1 TAB PO SCH (08:20)
[2019-01-25] MEDS: DOCUSATE SODIUM 100 MG CAP PO SCH ×2 (08:23→21:06)
[2019-01-25] MEDS: OXYCODONE/APAP 7.5/325MG TAB PO PRN ×3 (08:33→21:29)
--- NOTE | 2019-01-25 08:42 | Progress Note ---
Date of Service January 25, 2019 Subjective REVIEW SPECIALIST NOTE Pt doing well pain is improved with Percocet FHR; CAT1 On Rocephin IV Urology consult placed by Hospitalist Will continue NST Q shift No ctx on Monitor or reported by pt Results & Data Vital Signs (Past 12 Hours) Vital Signs Temp Pulse Resp BP Pulse Ox 01/25/19 07:03 36.7 C 71 20 111/74 97 01/24/19 22:47 36.7 C 22 119/73 96
[2019-01-25] MEDS ORDERED: cefTRIAXone SODIUM 2,000 MG in DEXTROSE 5% 50 ML IV SCH ×2 (09:00→21:00)
--- NOTE | 2019-01-25 09:14 | History and Physical Report ---
DATE OF ADMISSION: 01/24/2019 HISTORY OF PRESENT ILLNESS: The patient is a 23-year-old G3, P2, due date 03/06/2019, making her 34 weeks and 1 day who was admitted on 01/24/2019 for right-sided abdominal pain. On arrival to labor and delivery, she had no shortness of breath, no chills, no fever. The patient, however, had right-sided CVA tenderness. The pain was radiating from the back to the groin. The patient had been seen a couple of days earlier for the same thing and I have been discharged home. There was no gross hematuria. She denied any dysuria or frequency. Workup included a CBC, complete chemistry and a renal ultrasound. Renal ultrasound did not see a renal stone, but, however, did confirm hydronephrosis. The patient was admitted for observation with IV fluids and pain management. After receiving 1 dose of Dilaudid, the patient has been remarkably improved. heart tracing was category 1. COURSE: Has been unremarkable. PAST MEDICAL HISTORY: History of obesity and gestational diabetes in previous . She is, however, not gestational diabetic in this . PAST SURGICAL HISTORY: None. SOCIAL HISTORY: The patient denies tobacco, drug or alcohol use. FAMILY HISTORY: Noncontributory. PHYSICAL EXAMINATION: GENERAL: Well-developed, well-nourished white female in no acute distress. HEART: S1, S2, regular rhythm and rate. LUNGS: Clear to auscultation bilaterally. ABDOMEN: Gravid. PELVIC: Deferred. EXTREMITIES: No cyanosis, clubbing, edema. Feet heart tracing, no contractions seen on monitor. ASSESSMENT AND PLAN: A 23-year-old G3, P2 at 34 weeks and 1 with right-sided pain. Diagnosis at this point is suspected renal stones. The patient is admitted, will be given IV fluids and pain management.
[2019-01-25] MEDS ORDERED: MAGNESIUM HYDROXIDE SUSP 30 ML UDC PO ONE (10:28)
[2019-01-25] MEDS ORDERED: POTASSIUM CHLORIDE 20 MEQ TABCR PO STA (16:12)
[2019-01-25] MEDS ORDERED: POLYETHYLENE (MIRALAX) 17 GM PACK PO STA (17:03)
[2019-01-25] MEDS ORDERED: BISACODYL 5 MG TABEC PO ONE (17:03)
[2019-01-25] MEDS ORDERED: MAGNESIUM HYDROXIDE SUSP 30 ML UDC PO PRN (17:04)
[2019-01-25] MEDS: MAGNESIUM OXIDE 400 MG TAB PO SCH ×2 (17:05→21:07)
--- NOTE | 2019-01-25 17:32 | Hospitalist Progress Note ---
Date of Service January 25, 2019 Assessment & Plan (1) Right flank pain: Resented with right flank pain with radiation down to right groin, no gross hematuria Renal ultrasound shows right-sided hydronephrosis, without any stone Patient improved after IV fluids pain meds Urology consulted, appreciate input Patient possibly has passed the stone, Normal renal function, patient is afebrile, pain symptomatically improved, no indication for urologic intervention Commend to ordered bowel regimen for constipation, patient did not had any bowel movement for the last 6 days Patient is 34-week During her if patient requires urologic procedure, should be done at a tertiary care center where NICU services available (2) Gestational diabetes: Continue management as per [facility] [facility] MANAGER LOW k /low Mg : Replaced (3) Third trimester at less than 36 weeks: Uncomplicated on eventful per [employer] [facility] MANAGER Continue nonstress test as per OB recommendation (4) Hydronephrosis: Right-sided hydronephrosis noted on renal ultrasound No obstructed stone noted CT abdomen pelvis was not ordered secondary to third trimester Renal function remains normal With any event of worsening flank pain, fever, acute symptoms, urology recommends low radiation CT abdomen pelvis to assess kidney stone For urology procedure patient will need to be transferred to tertiary care with MICU service, as patient is at her third trimester CONSTIPATION Possible secondary to pain meds, Patient was in the ER on Monday, was discharged home with pain medications Has not had any bowel movement since No nausea vomiting, no lower abdominal pain, right flank pain has improved markedly Patient started with bowel regimen as per urology Patient remains medically stable: Leukocytosis has resolved, normal hemodynamics, Flank pain has improved Disposition: Expected to be discharged home as per primary team/[facility] [facility]ERTY MANAGER Subjective Flank pain has improved markedly, had not had any bowel movement for the last 6 days, No nausea vomiting, tolerating diet No fever chills Physical Exam Constitutional: WD/WN, vitals as above + obese; no acute distress Eyes: PERRL, conjunctivae normal, anicteric sclerae ENMT: external ear and nose normal, oropharynx normal Neck: trachea midline, no thyromegaly Respiratory: normal respiratory effort, lungs clear to auscultation Cardiovascular: RRR, no murmur, no edema Gastrointestinal (Abdomen): Percussion/Palpation: abdomen soft; abdomen nontender No CVA tenderness Gravid uterus Musculoskeletal: no cyanosis or clubbing, extremities motor strength 5/5 Skin: no rashes, warm and dry Neurologic: PERRL, EOMI, accommodation nl, no face palsy, no dysarthria Psychiatric: A+Ox3, euthymic affect Results & Data Vital Signs (Past 12 Hours) Vital Signs Temp Pulse Resp BP Pulse Ox 01/25/19 15:49 36.9 C 83 20 111/74 97 01/25/19 07:03 36.7 C 71 20 111/74 97 (1) Hydronephrosis Hydronephrosis type: unspecified Qualified Code(s): N13.30 - Unspecified hydronephrosis (2) Gestational diabetes Gestational diabetes mellitus control: unspecified Trimester: third trimester Qualified Code(s): O24.419 - Gestational diabetes mellitus in , unspecified control
[2019-01-25] MEDS: cefTRIAXone SODIUM 2,000 MG in DEXTROSE 5% 50 ML IV SCH (21:07)
--- NOTE | 2019-01-26 03:44 | Obstetrical Progress Note ---
Date of Service January 26, 2019 Physical Exam Physical Exam: Admit Note 23 F P0000 at 38.6 admitted in early labor that progressed to active labor. FHT Cat 1 with regular contractions now. GBS is negative. Cervix 7-8/90/-1/vertex. AROM with clear fluid. EFW is 6.5 lbs. Patient does not want epidural at this time. Anticipate normal delivery. Genitourinary: OB Exam Abdomen: + vertex and + regular contractions Manual OB Exam: + cervical dilation 7 cm and 8 cm, + cervical effacement 90%, + station -1 and + amniotic fluid clear OB Exam Monitor Tracing: + external FHT monitor used and + external uterine monitor used Results & Data Vital Signs (Past 12 Hours) Vital Signs Temp Pulse Resp BP Pulse Ox 01/25/19 23:15 36.7 C 71 16 100/65 98 01/25/19 15:49 36.9 C 83 20 111/74 97
[2019-01-26 06:59] VITALS: BP 95/55; PULSE 75; TEMP 97.7; O2SAT 97
--- NOTE | 2019-01-26 08:58 | Obstetrical Progress Note ---
Date of Service January 26, 2019 Subjective doing fine no pain tolerating diet Physical Exam Constitutional: WD/WN, vitals as above comfortable no CVA tenderness NST Cat 1 abdomen soft and gravid non-tender neg [facility] for discharge today Results & Data Vital Signs (Past 12 Hours) Vital Signs Temp Pulse Resp BP Pulse Ox 01/26/19 06:59 36.5 C 75 18 95/55 L 97 01/25/19 23:15 36.7 C 71 16 100/65 98 Laboratory Results Laboratory Results - last 48 hr 01/24/19 01/24/19 01/25/19 18:47 18:47 05:15 WBC 14.48 H RBC 4.01 L Hgb 11.5 L Hct 34.3 L MCV 85.5 MCH 28.7 MCHC 33.5 RDW Std Deviation 44.2 RDW Coeff of Zia 14.3 Plt Count 235 MPV 9.4 Immature Gran % (Auto) 0.3 Neut % (Auto) 79.8 Lymph % (Auto) 10.0 [place] % (Auto) 9.5 Eos % (Auto) 0.3 Baso % (Auto) 0.1 Immature Gran # (Auto) 0.05 H Neut # (Auto) 11.56 H Lymph # (Auto) 1.45 [place] # (Auto) 1.37 H Eos # (Auto) 0.04 Baso # (Auto) 0.01 Sodium 138 Potassium 3.3 L Chloride 105 Carbon Dioxide 23 Anion Gap 10.0 BUN Creatinine Est Cr Clr Drug Dosing Est GFR ( Amer) Est GFR (Non-Af Amer) BUN/Creatinine Ratio Glucose Calcium Magnesium Urine Color Dark Yellow Urine Appearance Cloudy A Urine pH 5.5 Ur Specific [place] 1.033 H Urine Protein 1+ H Urine Glucose (UA) Negative Urine Ketones 1+ H Urine Blood Trace H Urine Nitrite Negative Urine Bilirubin 1+ H Urine Urobilinogen Negative Ur Leukocyte Esterase Trace H Urine WBC (Auto) 10-30 H Urine RBC (Auto) 5-10 H U Hyaline Cast (Auto) 0 U Epithel Cells (Auto) >30 H Urine Bacteria (Auto) Negative Urine Mucus Present A 01/25/19 01/25/19 05:19 05:19 WBC 9.85 RBC 3.49 L Hgb 9.9 L Hct 30.1 L MCV 86.2 MCH 28.4 MCHC 32.9 RDW Std Deviation 45.0 RDW Coeff of Zia 14.5 Plt Count 199 MPV 9.4 Immature Gran % (Auto) 0.3 Neut % (Auto) 62.1 Lymph % (Auto) 23.9 [place] % (Auto) 12.1 Eos % (Auto) 1.4 Baso % (Auto) 0.2 Immature Gran # (Auto) 0.03 H Neut # (Auto) 6.12 Lymph # (Auto) 2.35 [place] # (Auto) 1.19 H Eos # (Auto) 0.14 Baso # (Auto) 0.02 Sodium 137 Potassium 3.4 L Chloride 106 Carbon Dioxide 26 Anion Gap 5.0 BUN 10 Creatinine 0.79 Est Cr Clr Drug Dosing 153.2 Est GFR ( Amer) 121.4 Est GFR (Non-Af Amer) 104.8 BUN/Creatinine Ratio 13.3 Glucose 91 Calcium 8.4 L Magnesium 1.7 L Urine Color Urine Appearance Urine pH Ur Specific [place] Urine Protein Urine Glucose (UA) Urine Ketones Urine Blood Urine Nitrite Urine Bilirubin Urine Urobilinogen Ur Leukocyte Esterase Urine WBC (Auto) Urine RBC (Auto) U Hyaline Cast (Auto) U Epithel Cells (Auto) Urine Bacteria (Auto) Urine Mucus
[2019-01-26] MEDS: PRENATAL VITAMIN 1 TAB PO SCH (08:59)
[2019-01-26] MEDS: MAGNESIUM OXIDE 400 MG TAB PO SCH (08:59)
[2019-01-26] MEDS: CHOLECALCIFEROL 1,000 UNITS TAB PO SCH (09:00)
[2019-01-26] MEDS: DOCUSATE SODIUM 100 MG CAP PO SCH (09:03)
--- NOTE | 2019-02-09 05:04 | Discharge Summary ---
REASON FOR ADMISSION AND HOSPITAL COURSE: The patient is a 23-year-old female, para 2-0-0-2, EDC 03/06/2019, who presents at 33 weeks and 4 days with right-sided flank pain. She was admitted to rule out kidney stone. The patient is not having any contractions or vaginal bleeding. Ultrasound done did not show any kidney stones. Did have some hydronephrosis. She was given pain medication. Subsequently, did well and was subsequently discharged home on 01/26/2019 in stable condition after having been seen by urology. No further treatment is necessary. The patient had a category 1 strip throughout her hospital stay. DISCHARGE DIAGNOSIS: with hydronephrosis. DISCHARGE INSTRUCTIONS: The patient was given instructions to call the office for 1 week, continue her oral hydration, and to call for any problems. Regular diet on discharge. CONDITION ON DISCHARGE: Stable.
== END 2019-01-26 10:20 | disposition home or self-care (01) | DRG 832 ==
LOC: OPB 17:46 → 4S1 17:46 → 4E 22:14

== ENCOUNTER 2019-02-28 07:33 | Inpatient (IN) ==
[2019-02-28] MEDS ORDERED: OXYTOCIN 30 UNITS/500 ML BAG IV PRN ×3 (09:25→17:51)
[2019-02-28] MEDS ORDERED: PENICILLIN G POTASSIUM 6 MU in DEXTROSE 5% 250 ML IV STA (09:31)
[2019-02-28] MEDS ORDERED: PENICILLIN G POTASSIUM 3 MU in DEXTROSE 5% 100 ML IV PRN (09:31)
[2019-02-28 09:55] LABS: Hemoglobin 11.2 g/dL (12.0-16.0); Mean Corpuscular Volume 86.8 fL (80-100); Mean Platelet Volume 9.5 fL (7.4-10.4); Platelet Count 209 K/uL (130-400); RDW Coefficient of Variation 15.2 % (11.5-14.5); RDW Standard Deviation 48.1 fL (36.4-46.3); Red Blood Count 4.03 M/uL (4.2-5.4); White Blood Count 10.75 K/uL (4.8-10.8)
[2019-02-28] MEDS: LACTATED RINGER'S 1,000 ML IV PRN ×2 (10:21→14:15)
--- NOTE | 2019-02-28 10:21 | Obstetrical Progress Note ---
Date of Service February 28, 2019 Subjective Admit Note 23 F P2002 at 39.1 weeks admitted for induction of labor for Class 3 obesity. Cervix 3/50/-3/vertex/-3/intact. EFW 7 lbs. FHT Cat 1. GBS is positive. Will start Oxytocin for induction of labor. Results & Data Vital Signs (Past 12 Hours) Vital Signs Temp Pulse Resp BP 02/28/19 07:47 36.8 C 109 H 20 131/81 02/28/19 07:43 109 H 131/81 02/28/19 07:42 36.8 C 20
[2019-02-28] MEDS ORDERED: fentaNYL citrate 100 MCG/2 ML VIAL ONE (13:40)
[2019-02-28] MEDS ORDERED: BUPIVACAINE 0.25% 30 ML VIAL ONE (13:40)
[2019-02-28] MEDS ORDERED: ePHEDrine sulfate 50 MG/ML AMP ONE (13:40)
[2019-02-28] MEDS ORDERED: fentaNYL 2MCG/ML ROPIV 1.25MG/ML 100 ML BAG EPI ONE (13:41)
--- NOTE | 2019-02-28 14:57 | Obstetrical Progress Note ---
Date of Service February 28, [address] Physical Exam Constitutional: WD/WN, vitals as above comfortable Genitourinary: Manual OB Exam: + cervical dilation 4 cm and 5 cm, + cervical effacement 70%, + station -2 and + amniotic fluid clear OB Exam Monitor Tracing: + external FHT monitor used, + external uterine monitor used and + category I SROM with exam Results & Data Vital Signs (Past 12 Hours) Vital Signs Temp Pulse Resp BP Pulse Ox 02/28/19 14:55 108 H 140/64 02/28/19 14:53 100 H 99 02/28/19 14:51 88 132/60 02/28/19 14:49 93 H 136/61 02/28/19 14:48 92 H 99 02/28/19 14:43 97 H 99 02/28/19 14:38 107 H 100 02/28/19 14:33 110 H 100 02/28/19 14:28 100 H 148/78 H 100 02/28/19 14:10 86 20 135/69 02/28/19 13:08 84 125/74 02/28/19 12:06 94 H 20 124/71 02/28/19 11:01 90 20 128/66 02/28/19 10:26 88 139/67 02/28/19 07:47 36.8 C 109 H 20 131/81 02/28/19 07:43 109 H 131/81 02/28/19 07:42 36.8 C 20
--- NOTE | 2019-02-28 15:03 | Anesthesiology Consultation ---
Date of Service February 28, 2019 Assessment & Plan Chart Review Chart Review: Acceptable Risk for Surgery and Patient NOT seen in Pre Admission Testing Consults Requested none History Height/Weight Height: 5 ft 7 in Weight: 133.356 kg Allergies Allergy/AdvReac Type Severity Reaction Status Date / Time No Known Allergies Allergy Verified 01/24/19 18:20 Medications Home Medications Medication Instructions Recorded Confirmed Last Taken PNV cmb#95-ferrous fumarate-FA 1 tab PO DAILY 01/20/19 02/28/19 02/28/19 06:30 [] cholecalciferol (vitamin D3) 1,000 unit PO DAILY 01/20/19 02/28/19 02/24/19 08:30 [Vitamin D3] Active Medications Generic Name Dose Route Start Last Admin Trade Name Freq PRN Reason Stop Dose Admin Lactated Ringer's 1,000 mls @ 125 mls/hr 02/28/19 09:25 02/28/19 14:15 Lr IV 03/02/19 09:24 125 mls/hr .Q8H PRN Administration L&D Protocol Protocol Penicillin G Potassium 3 mu/ 106 mls @ 100 mls/hr 02/28/19 09:31 02/28/19 14:15 Dextrose IV 03/10/19 09:30 100 mls/hr Q4H PRN Administration Give until delivery Oxytocin 30 units in 500 mls @ 7 mls/hr 02/28/19 09:50 02/28/19 13:35 Pitocin IV 03/02/19 09:49 0.42 units/hr .Q24H PRN 7 mls/hr Labor Induction/Augmentation Titration Protocol 0.42 UNITS/HR Past Medical History Medical History Class 3 severe obesity in adult Low vitamin D level Right flank pain (Inactive) Spontaneous vaginal delivery [facility] 2011, C 2017 Past Family History Family History Mother Kidney stones Father Myocardial infarction Grandmother (Maternal) Heart disorder Grandfather (Paternal) Heart disorder Social History Smoking Status: Never smoker Hx Alcohol Use: No Hx Substance Use: No Physical Exam Vital Signs Last Vital Signs Temp 36.8 C 02/28/19 07:47 Pulse 102 H 02/28/19 15:00 Resp 20 02/28/19 14:10 BP 141/75 H 02/28/19 15:00 Pulse Ox 97 02/28/19 14:58 Testing Laboratory Results 02/28/19 09:36
[2019-02-28] MEDS ORDERED: NALBUPHINE HCL INJ 10 MG/ML AMP IV PRN (15:08)
[2019-02-28] MEDS ORDERED: ePHEDrine sulfate 50 MG/ML AMP IV PRN (15:08)
[2019-02-28] MEDS ORDERED: fentaNYL 2MCG/ML ROPIV 1.25MG/ML 100 ML BAG EPI PRN (15:08)
[2019-02-28] MEDS ORDERED: ONDANSETRON INJ 2 MG/ML 2 ML VIAL IV PRN (15:08)
[2019-02-28] MEDS ORDERED: NALOXONE HCL 0.4 MG/1 ML VIAL/CARP IV PRN (15:08)
[2019-02-28] MEDS ORDERED: NALOXONE HCL 1 MG in SODIUM CHLORIDE 0.9% 1000ML 1,000 ML IV PRN (15:08)
[2019-02-28] MEDS ORDERED: DiphenhydrAMINE HCL 50 MG/ML VIAL IV PRN (15:08)
--- NOTE | 2019-02-28 16:47 | Obstetrical Progress Note ---
Date of Service February 28, 2019 Physical Exam Genitourinary: Manual OB Exam: + cervical dilation 7 cm, + cervical effacement 90%, + station -1 and + amniotic fluid clear OB Exam Monitor Tracing: + external FHT monitor used, + external uterine monitor used and + category I Results & Data Vital Signs (Past 12 Hours) Vital Signs Temp Pulse Resp BP Pulse Ox 02/28/19 16:43 101 H 99 02/28/19 16:39 84 120/57 L 02/28/19 16:38 86 99 02/28/19 16:33 89 98 02/28/19 16:28 92 H 98 02/28/19 16:23 95 H 109/56 L 98 02/28/19 16:18 92 H 99 02/28/19 16:13 84 99 02/28/19 16:09 85 117/67 02/28/19 16:08 81 99 02/28/19 16:03 93 H 99 02/28/19 15:58 93 H 98 02/28/19 15:54 94 H 128/69 02/28/19 15:53 89 99 02/28/19 15:48 92 H 98 02/28/19 15:43 85 97 02/28/19 15:38 82 116/64 95 02/28/19 15:33 88 98 02/28/19 15:30 20 02/28/19 15:28 92 H 97 02/28/19 15:24 85 124/70 02/28/19 15:23 98 H 98 02/28/19 15:18 97 H 98 02/28/19 15:13 90 98 02/28/19 15:10 91 H 94 02/28/19 15:08 95 H 122/63 99 02/28/19 15:07 91 H 128/58 L 02/28/19 15:04 86 134/63 02/28/19 15:03 91 H 98 02/28/19 15:00 37.0 C 102 H 20 141/75 H 02/28/19 14:58 90 141/63 H 97 02/28/19 14:55 108 H 140/64 02/28/19 14:53 100 H 99 02/28/19 14:51 88 20 132/60 02/28/19 14:49 93 H 136/61 02/28/19 14:48 92 H 99 02/28/19 14:43 97 H 99 02/28/19 14:38 107 H 100 02/28/19 14:33 110 H 100 02/28/19 14:28 100 H 148/78 H 100 02/28/19 14:10 86 20 135/69 02/28/19 13:08 84 125/74 02/28/19 12:06 94 H 20 124/71 02/28/19 11:01 90 20 128/66 02/28/19 10:26 88 139/67 02/28/19 07:47 36.8 C 109 H 20 131/81 02/28/19 07:43 109 H 131/81 02/28/19 07:42 36.8 C 20
--- NOTE | 2019-02-28 17:30 | Obstetrical Progress Note ---
Date of Service February 28, 2019 Physical Exam Genitourinary: Manual OB Exam: + cervical dilation 9 cm and 10 cm, + cervical effacement 100% and + amniotic fluid clear OB Exam Monitor Tracing: + external FHT monitor used, + external uterine monitor used, + category I and + normal FHT variability small anterior lip Results & Data Vital Signs (Past 12 Hours) Vital Signs Temp Pulse Resp BP Pulse Ox 02/28/19 17:23 102 H 135/74 100 02/28/19 17:18 105 H 100 02/28/19 17:13 99 H 100 02/28/19 17:08 97 H 130/74 99 02/28/19 17:03 91 H 100 02/28/19 16:58 84 100 02/28/19 16:55 100 H 138/80 02/28/19 16:53 92 H 99 02/28/19 16:48 93 H 100 02/28/19 16:43 101 H 99 02/28/19 16:39 84 120/57 L 02/28/19 16:38 86 99 02/28/19 16:33 89 98 02/28/19 16:28 92 H 98 02/28/19 16:23 95 H 109/56 L 98 02/28/19 16:18 92 H 99 02/28/19 16:13 84 99 02/28/19 16:09 85 117/67 02/28/19 16:08 81 99 02/28/19 16:03 93 H 99 02/28/19 15:58 93 H 98 02/28/19 15:54 94 H 128/69 02/28/19 15:53 89 99 02/28/19 15:48 92 H 98 02/28/19 15:43 85 97 02/28/19 15:38 82 116/64 95 02/28/19 15:33 88 98 02/28/19 15:30 20 02/28/19 15:28 92 H 97 02/28/19 15:24 85 124/70 02/28/19 15:23 98 H 98 02/28/19 15:18 97 H 98 02/28/19 15:13 90 98 02/28/19 15:10 91 H 94 02/28/19 15:08 95 H 122/63 99 02/28/19 15:07 91 H 128/58 L 02/28/19 15:04 86 134/63 02/28/19 15:03 91 H 98 02/28/19 15:00 37.0 C 102 H 20 141/75 H 02/28/19 14:58 90 141/63 H 97 02/28/19 14:55 108 H 140/64 02/28/19 14:53 100 H 99 02/28/19 14:51 88 20 132/60 02/28/19 14:49 93 H 136/61 02/28/19 14:48 92 H 99 02/28/19 14:43 97 H 99 02/28/19 14:38 107 H 100 02/28/19 14:33 110 H 100 02/28/19 14:28 100 H 148/78 H 100 02/28/19 14:10 86 20 135/69 02/28/19 13:08 84 125/74 02/28/19 12:06 94 H 20 124/71 02/28/19 11:01 90 20 128/66 02/28/19 10:26 88 139/67 02/28/19 07:47 36.8 C 109 H 20 131/81 02/28/19 07:43 109 H 131/81 02/28/19 07:42 36.8 C 20
[2019-02-28] MEDS ORDERED: DIPHTHERIA/TETANUS/PERTUSSIS 0.5 ML SYR/VIAL IM ONE (17:51)
[2019-02-28] MEDS ORDERED: MEASLES, MUMPS & RUBELLA VIRUS VIAL SQ ONE (17:51)
[2019-02-28] MEDS ORDERED: BENZOCAINE 20% AER SPR 82.5 GM CAN EXT PRN (17:51)
[2019-02-28] MEDS ORDERED: ACETAMINOPHEN 325 MG TAB PO PRN (17:51)
[2019-02-28] MEDS ORDERED: HYDROCORTISONE ACETATE 25 MG SUPP PR PRN (17:51)
[2019-02-28] MEDS ORDERED: SUPERCREAM 0.870% 15 GM JAR EXT PRN (17:51)
--- NOTE | 2019-02-28 17:55 | Delivery Summary ---
Vaginal Delivery Summary Date of Service February 28, 2019 Supervising Physician Co-Signing Physician Notes Delivery note live female ERIC over intact perineum with nuchal cord x1 reduced at delivery. Delayed cord clamping followed by cord blood and then cord blood for stem cell collection obtained. Placenta delivered spontaneously and intact. No tears. EBL 150 ml. Final sponge and instrument count are correct. Mom and baby stable.
[2019-02-28] MEDS ORDERED: LACTATED RINGER'S 1,000 ML IV SCH (18:00)
--- NOTE | 2019-02-28 18:31 | Anesthesia Procedure Note ---
Date of Service February 28, 2019 Anesthesia Post Epidural Note Vital Signs Vital Signs: Temp Pulse Resp BP Pulse Ox 37.0 C 99 H 20 148/65 H 100 02/28/19 15:00 02/28/19 18:09 02/28/19 15:30 02/28/19 18:09 02/28/19 17:43 Notes Mental Status: alert / awake / arousable Patient Amnestic to Procedure: Yes Nausea / Vomiting: adequately controlled Pain: adequately controlled Airway Patency, RR, SpO2: stable & adequate BP & HR: stable & adequate Hydration State: stable & adequate Neuraxial Anesthesia: was administered and sensory block resolved Anesthetic Complications: no major complications apparent and Pt Satisfied with anesthetic care Epidural: Removed without complications and With tip intact
[2019-02-28] MEDS: DOCUSATE SODIUM 100 MG CAP PO SCH (20:52)
[2019-02-28] MEDS: IBUPROFEN 600 MG TAB PO PRN (21:16)
[2019-03-01] MEDS: IBUPROFEN 600 MG TAB PO PRN ×2 (05:42→15:20)
[2019-03-01 07:16] LABS: Hemoglobin 10.3 g/dL (12.0-16.0); Mean Corpuscular Hgb Conc 32.2 g/dL (32-36); Mean Corpuscular Volume 86.7 fL (80-100); Mean Platelet Volume 9.3 fL (7.4-10.4); Platelet Count 178 K/uL (130-400); RDW Coefficient of Variation 15.2 % (11.5-14.5); RDW Standard Deviation 48.2 fL (36.4-46.3); Red Blood Count 3.69 M/uL (4.2-5.4); White Blood Count 9.22 K/uL (4.8-10.8)
[2019-03-01] MEDS ORDERED: FERROUS SULFATE 325 MG TAB PO SCH (08:00)
[2019-03-01] MEDS ORDERED: PRENATAL VITAMIN 1 TAB PO SCH ×2 (08:00→09:00)
[2019-03-01] MEDS: DOCUSATE SODIUM 100 MG CAP PO SCH (08:19)
--- NOTE | 2019-03-01 08:46 | Obstetrical Progress Note ---
Date of Service March 01, 2019 Subjective Patient is seen and examined. She feels well, no complaints. Likes to be discharged. Ambulating without dizziness Voiding without difficulty Tolerating regular diet with out N&V Bleeding is minimal No fever/ chills/ CP/ SOB/ N&V/ Leg pain Was last night but decided to switch to bottle feeding. Discussed benefits of breast feeding for her and the baby. Vital Signs Temp Pulse Resp BP Pulse Ox 03/01/19 03:30 37.0 C 84 16 110/71 98 02/28/19 23:06 36.8 C 96 H 18 121/76 97 03/01/19 02/28/19 Range/Units 06:59 09:36 WBC 9.22 10.75 (4.8-10.8) K/uL RBC 3.69 L 4.03 L (4.2-5.4) M/uL Hgb 10.3 L 11.2 L (12.0-16.0) g/dL Hct 32.0 L 35.0 L (37-47) % MCV 86.7 86.8 (80-100) fL MCH 27.9 27.8 (25-34) pg MCHC 32.2 32.0 (32-36) g/dL RDW Std Deviation 48.2 H 48.1 H (36.4-46.3) fL RDW Coeff of Zia 15.2 H 15.2 H (11.5-14.5) % Plt Count 178 209 (130-400) K/uL MPV 9.3 9.5 (7.4-10.4) fL PE: General: Alert, orientedx3, NAD Abd: soft, NT, fundus firm, below Umbilicus Perineum intact, Lochia rubra minimal Ext; NT, no edema AP: 23 yo s/p , ppd# 1 VSS Afebrile doing well Continue routine care All questions were answered Desires D/C tonight D/C home if baby will be discharged Discussed when to call Results & Data Vital Signs (Past 12 Hours) Vital Signs Temp Pulse Resp BP Pulse Ox 03/01/19 03:30 37.0 C 84 16 110/71 98 02/28/19 23:06 36.8 C 96 H 18 121/76 97
[2019-03-01] MEDS ORDERED: CHOLECALCIFEROL 1,000 UNITS TAB PO SCH (09:00)
[2019-03-01] MEDS ORDERED: ONDANSETRON 4 MG TAB PO PRN (11:02)
[2019-03-01] MEDS ORDERED: BISACODYL 5 MG TABEC PO SCH (20:00)
[2019-03-02] MEDS ORDERED: BISACODYL 10 MG SUPP PR PRN
== END 2019-03-01 18:55 | disposition home or self-care (01) | DRG 806 ==
LOC: 4S1 07:33 → 4S2 20:37

== ENCOUNTER 2022-05-03 13:09 | Inpatient (IN) ==
[2022-05-03] MEDS ORDERED: OXYTOCIN 30 UNITS/500 ML BAG IV PRN ×2 (15:17→17:31)
[2022-05-03] MEDS ORDERED: LIDOCAINE 1% LOCAL 20 ML VIAL INFIL PRN (15:17)
[2022-05-03 16:07] LABS: Hematocrit (blood only) 36.5 % (34.1-44.9); Hemoglobin 11.7 g/dl (12.0-16.0); Mean Corpuscular Hemoglobin 27.7 pg (25.0-34.0); Mean Corpuscular Hgb Conc 32.1 g/dL (32.0-36.0); Mean Corpuscular Volume 86.3 fL (80.0-100.0); Platelet Count 235 K/uL (130-400); RDW Coefficient of Variation 15.5 % (11.5-14.5); RDW Standard Deviation 48.6 fL (36.4-46.3); Red Blood Count 4.23 M/uL (3.93-5.22); White Blood Count 12.56 K/ul (4.8-10.8)
--- NOTE | 2022-05-03 17:15 | History & Physical Report ---
Date of Service May 03, 2022 Assessment & Plan (1) GDM, class A2: Plan: Admit for induction of labor Admission and Anticipated Discharge Date Admission Date: May 03, 2022 History of Present Illness Chief Complaint: induction of labor Primary Care Provider: Will Oakley MD 26 F [id number] at 39 weeks with induction of labor for GDM on insulin with LGA. GBS is negative Allergies Allergy/AdvReac Type Severity Reaction Status Date / Time No Known Allergies Allergy Verified 05/03/22 13:46 Home Medications Medication Instructions Recorded Confirmed Type cholecalciferol (vitamin D3) 25 1,000 unit PO DAILY 01/20/19 04/11/19 History mcg (1,000 unit) capsule (Vitamin D3) vit no.95-ferrous 1 tab PO DAILY 01/20/19 05/03/22 History fumarate 28 mg-folic acid 800 mcg tablet () famotidine 20 mg tablet 20 mg PO BID 05/03/22 05/03/22 History folic acid 1 mg tablet 1 mg PO DAILY 05/03/22 05/03/22 History insulin detemir U-100 100 unit/mL 50 unit subcut BID 05/03/22 05/03/22 History (3 mL) subcutaneous pen (Levemir FlexTouch U-100 Insulin) Patient History Medical History Class 3 severe obesity in adult Gestational diabetes mellitus (GDM) affecting Low vitamin D level Right flank pain Spontaneous vaginal delivery L[facility] 2011, C 2017 Family History Mother Kidney stones Father Myocardial infarction Grandmother (Maternal) Heart disorder Grandfather (Paternal) Heart disorder Social History Smoking Status: Never smoker Second Hand Exposure: Yes; Hx Alcohol Use: No Hx Substance Use: No Preferred Language: Maori Communication Ability: Effective Inspector Watch Train Required: No Beliefs That Will Affect Care: None marital status: Current Living Situation: Spouse current occupational status: unemployed Feels Safe at Home: Yes Safety Concerns: Feels Safe At This Time Assistive Devices: None 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 Review of Systems All systems reviewed & are unremarkable except as noted in HPI & below Physical Exam Constitutional: WD/WN, vitals as above Eyes: PERRL, conjunctivae normal, anicteric sclerae Cardiovascular: RRR, no murmur, no edema Gastrointestinal (Abdomen): Inspection/Auscultation: abdomen normal to inspection Musculoskeletal: Extremities: extremities normal to inspection Skin: no rashes, warm and dry Neurologic: patellar DTR's 2+ bilat, sensation intact Psychiatric: A+Ox3, euthymic affect Genitourinary: no vaginal lesions, no adnexal mass Manual OB Exam: + cervical dilation 3 cm and 4 cm, + cervical effacement 60% and + station -2 cervix anterior Results & Data ([facility]) Vital Signs (Past 12 Hours) Vital Signs Temp Pulse Resp BP 05/03/22 13:51 37.1 C 121 H 18 123/90 05/03/22 13:22 121 H 123/90 Laboratory Results Laboratory Results - last 24 hr 05/03/22 05/03/22 05/03/22 14:34 14:39 15:39 WBC RBC Hgb Hct MCV MCH MCHC RDW Std Deviation RDW Coeff of Zia Plt Count MPV POC Glucose 97 SARS-CoV-2, RNA, NAAT NEGATIVE Blood Type O Positive Antibody Screen NEGATIVE 05/03/22 15:39 WBC 12.56 H RBC 4.23 Hgb 11.7 L Hct 36.5 MCV 86.3 MCH 27.7 MCHC 32.1 RDW Std Deviation 48.6 H RDW Coeff of Zia 15.5 H Plt Count 235 MPV 10.0 POC Glucose SARS-CoV-2, RNA, NAAT Blood Type Antibody Screen Monitoring External Monitor Cat 1
[2022-05-03] MEDS: LACTATED RINGER'S 1,000 ML IV PRN ×2 (17:25→23:22)
[2022-05-03] MEDS ORDERED: ACETAMINOPHEN 325 MG TAB PO PRN (18:54)
[2022-05-03] MEDS ORDERED: ePHEDrine sulfate 50 MG/ML AMP IV PRN (23:04)
[2022-05-03] MEDS ORDERED: NALBUPHINE HCL INJ 10 MG/ML AMP IV PRN (23:04)
[2022-05-03] MEDS ORDERED: fentaNYL 2MCG/ML ROPIVACAINE 1.25MG/ML 100 ML BAG EPI PRN (23:04)
[2022-05-03] MEDS ORDERED: NALOXONE HCL 0.4 MG/1 ML VIAL/CARP IV PRN (23:04)
[2022-05-03] MEDS ORDERED: ONDANSETRON INJ 2 MG/ML 2 ML VIAL IV PRN (23:04)
[2022-05-03] MEDS ORDERED: NALOXONE HCL 1 MG in SODIUM CHLORIDE 0.9% 1000ML 1,000 ML IV PRN (23:04)
[2022-05-03] MEDS ORDERED: diphenhydrAMINE 50 MG/ML VIAL IV PRN (23:04)
[2022-05-03] MEDS ORDERED: BUPIVACAINE 0.25% 30 ML VIAL ONE (23:06)
[2022-05-03] MEDS ORDERED: ePHEDrine sulfate 50 MG/ML AMP ONE (23:06)
[2022-05-03] MEDS ORDERED: fentaNYL 2MCG/ML ROPIVACAINE 1.25MG/ML 100 ML BAG EPI ONE (23:06)
[2022-05-03] MEDS ORDERED: SODIUM CHLORIDE 0.9% INJ 10 ML VIAL ONE (23:06)
[2022-05-03] MEDS ORDERED: fentaNYL citrate 100 MCG/2 ML VIAL ONE (23:06)
[2022-05-03] MEDS ORDERED: LIDOCAINE 2%/EPINEPHRINE 1:200,000 20 ML SDV ONE (23:06)
--- NOTE | 2022-05-03 23:07 | Anesthesiology Consultation ---
Date of Service May 03, 2022 Assessment & Plan (1) Encounter for pre-operative examination: Chart Review Chart Review: Patient NOT seen in Pre Admission Testing and Acceptable Risk for Labor Epidural Consults Requested none History Height/Weight Height: 5 ft 7 in Weight: 143.335 kg Allergies Allergy/AdvReac Type Severity Reaction Status Date / Time No Known Allergies Allergy Verified 05/03/22 13:46 Medications Home Medications Medication Instructions Recorded Confirmed Last Taken cholecalciferol (vitamin D3) 25 1,000 unit PO DAILY 01/20/19 04/11/19 02/24/19 08:30 mcg (1,000 unit) capsule (Vitamin D3) vit no.95-ferrous 1 tab PO DAILY 01/20/19 05/03/22 05/02/22 20:00 fumarate 28 mg-folic acid 800 mcg tablet () famotidine 20 mg tablet 20 mg PO BID 05/03/22 05/03/22 05/03/22 07:00 folic acid 1 mg tablet 1 mg PO DAILY 05/03/22 05/03/22 05/02/22 20:00 insulin detemir U-100 100 unit/mL 50 unit subcut BID 05/03/22 05/03/22 05/03/22 05:30 (3 mL) subcutaneous pen (Levemir FlexTouch U-100 Insulin) Active Medications Generic Name Dose Route Start Last Admin Trade Name Freq PRN Reason Stop Dose Admin Acetaminophen 650 mg 05/03/22 18:54 05/03/22 19:28 Acetaminophen 325 Mg Tab PO 06/02/22 18:53 650 mg Q4H PRN Administration Fever or headache Lactated Ringer's 1,000 mls @ 125 mls/hr 05/03/22 15:17 05/03/22 23:22 Lr IV 05/05/22 15:16 999 mls/hr .Q8H PRN Administration L&D Protocol Protocol Oxytocin 30 units in 500 mls @ 7 mls/hr 05/03/22 17:31 05/03/22 22:30 Pitocin IV 05/05/22 17:30 0.42 units/hr .Q24H PRN 7 mls/hr Labor Induction/Augmentation Titration Protocol 0.42 UNITS/HR Past Medical History Medical History Class 3 severe obesity in adult Gestational diabetes mellitus (GDM) affecting Low vitamin D level Right flank pain Spontaneous vaginal delivery LMC 2011, LFC 2017 Exercise / Class Metabolic Activity II 4-5 Yardwork/Stairs/Walk up hill Past Family History Family History Mother Kidney stones Father Myocardial infarction Grandmother (Maternal) Heart disorder Grandfather (Paternal) Heart disorder Past Anesthesia History No Hx of Anesthesia Complications and No Family Hx of Anesthesia Complications Social History Smoking Status: Never smoker Hx Alcohol Use: No Hx Substance Use: No substance use type: does not use Physical Exam Vital Signs Last Vital Signs Temp 37.3 C 05/03/22 19:00 Pulse 98 H 05/03/22 23:32 Resp 18 05/03/22 22:00 BP 118/62 05/03/22 23:32 Pulse Ox 100 05/03/22 23:29 Testing Laboratory Results 05/03/22 15:39 Blood Type O Positive 05/03/22 15:39 Antibody Screen NEGATIVE 05/03/22 15:39 05/03/22 05/03/22 05/03/22 20:59 19:30 17:38 POC Glucose 83 80 83 05/03/22 14:39 POC Glucose 97
[2022-05-04] MEDS ORDERED: CALCIUM CARBONATE 500 MG CHEWABLE TAB PO PRN (00:30)
[2022-05-04] MEDS: LACTATED RINGER'S 1,000 ML IV PRN (02:40)
[2022-05-04] MEDS ORDERED: NURSING L&D Epidural Breakthrough Pain Update ONE (04:15)
--- NOTE | 2022-05-04 04:16 | Labor Progress Brief Note ---
Date of Service May 04, 2022 Assessment & Plan Admission and Anticipated Discharge Date Admission Date: May 03, 2022 Physical Exam Genitourinary: Manual OB Exam: + cervical dilation 8 cm, + cervical effacement 100%, + station -2 and + amniotic fluid clear and bloody OB Exam Monitor Tracing: + external FHT monitor used, + external uterine monitor used, + category I and + normal FHT variability AROM with Amni-hook Results & Data ([facility]) Vital Signs (Past 12 Hours) Vital Signs Temp Pulse Resp BP Pulse Ox 05/04/22 04:09 87 100 05/04/22 04:04 97 H 100 05/04/22 04:05 98 H 133/84 05/04/22 04:00 18 05/04/22 04:00 18 05/04/22 03:59 91 H 99 05/04/22 03:54 87 99 05/04/22 03:49 93 H 128/81 99 05/04/22 03:44 92 H 99 05/04/22 03:39 84 100 05/04/22 03:34 99 05/04/22 03:34 86 05/04/22 03:34 91 H 131/81 05/04/22 03:29 88 100 05/04/22 03:24 98 H 100 05/04/22 03:15 36.7 C 05/04/22 03:19 98 H 114/84 100 05/04/22 03:14 95 H 100 05/04/22 03:09 83 97 05/04/22 03:00 18 05/04/22 03:00 18 05/04/22 03:04 77 112/61 98 05/04/22 02:59 79 97 05/04/22 02:54 81 98 05/04/22 02:49 98 05/04/22 02:49 92 H 05/04/22 02:49 88 115/64 05/04/22 02:44 85 98 05/04/22 02:39 103 H 97 05/04/22 02:30 18 05/04/22 02:30 18 05/04/22 02:34 96 H 115/66 100 05/04/22 02:29 98 05/04/22 02:29 90 05/04/22 02:29 80 87 L 05/04/22 02:24 86 98 05/04/22 02:21 87 111/72 05/04/22 02:19 84 97 05/04/22 02:14 87 99 05/04/22 02:09 83 100 05/04/22 02:04 90 120/69 99 05/04/22 01:59 95 H 97 05/04/22 01:54 82 96 05/04/22 01:30 18 05/04/22 01:30 18 05/04/22 01:49 97 05/04/22 01:49 89 05/04/22 01:49 85 118/60 05/04/22 01:44 87 98 05/04/22 01:39 96 H 97 05/04/22 01:34 95 H 118/64 97 05/04/22 01:29 93 H 97 05/04/22 01:24 90 97 05/04/22 01:19 97 05/04/22 01:19 92 H 05/04/22 01:19 88 117/56 L 05/04/22 01:14 92 H 97 05/04/22 01:09 87 97 05/04/22 01:05 82 126/63 05/04/22 01:04 88 99 05/04/22 00:59 83 99 05/04/22 00:54 96 H 99 05/04/22 00:49 98 05/04/22 00:49 91 H 05/04/22 00:49 89 105/61 05/04/22 00:44 97 H 99 05/04/22 00:39 86 98 05/04/22 00:34 82 106/63 97 05/04/22 00:30 18 05/04/22 00:30 18 05/04/22 00:29 98 H 97 05/04/22 00:24 92 H 97 05/04/22 00:19 98 05/04/22 00:19 90 05/04/22 00:19 95 H 113/55 L 05/04/22 00:14 93 H 97 05/03/22 23:00 18 05/03/22 23:00 37.0 C 18 05/04/22 00:00 18 05/04/22 00:00 18 05/04/22 00:09 93 H 98 05/04/22 00:04 93 H 98 05/04/22 00:01 95 H 131/60 05/03/22 23:59 96 05/03/22 23:59 96 H 05/03/22 23:54 98 05/03/22 23:54 94 H 05/03/22 23:55 96 H 05/03/22 23:55 119/80 05/03/22 23:49 98 05/03/22 23:49 93 H 05/03/22 23:49 128/81 05/03/22 23:47 97 H 05/03/22 23:47 122/81 05/03/22 23:45 96 H 05/03/22 23:45 121/77 05/03/22 23:44 98 05/03/22 23:44 93 H 05/03/22 23:43 100 H 05/03/22 23:43 116/74 05/03/22 23:41 96 H 05/03/22 23:41 112/71 05/03/22 23:39 97 05/03/22 23:39 103 H 05/03/22 23:39 116/74 05/03/22 23:38 100 H 05/03/22 23:38 118/72 05/03/22 23:36 99 H 05/03/22 23:36 128/77 05/03/22 23:34 99 05/03/22 23:34 87 05/03/22 23:34 101 H 05/03/22 23:34 118/60 05/03/22 23:32 98 H 05/03/22 23:32 118/62 05/03/22 23:29 100 05/03/22 23:29 92 H 05/03/22 23:28 93 H 05/03/22 23:28 100/57 L 05/03/22 23:24 98 05/03/22 23:24 99 H 05/03/22 23:19 99 05/03/22 23:19 88 05/03/22 23:14 100 05/03/22 23:14 105 H 05/03/22 23:09 97 05/03/22 23:09 112 H 05/03/22 23:09 149/75 H 05/03/22 22:02 97 H 05/03/22 22:02 120/69 05/03/22 22:00 18 05/03/22 22:00 18 05/03/22 21:00 18 05/03/22 21:00 18 05/03/22 21:00 107 H 05/03/22 21:00 120/71 05/03/22 20:02 18 05/03/22 20:02 18 05/03/22 20:02 112 H 05/03/22 20:02 127/62 05/03/22 19:00 18 05/03/22 19:00 37.3 C 18 05/03/22 19:07 100 H 05/03/22 19:07 137/82 05/03/22 18:48 18 05/03/22 18:48 37.1 C 18 05/03/22 18:48 110 H 05/03/22 18:48 125/69
[2022-05-04] MEDS ORDERED: fentaNYL citrate 100 MCG/2 ML VIAL ONE (05:04)
--- NOTE | 2022-05-04 05:29 | Delivery Summary ---
Vaginal Delivery Summary Date of Service May 04, 2022 Vaginal Delivery Summary Delivery Note live male ERIC over intact perineum with delayed cord clamping and Apgars 7/9 weight pending. Placenta delivered spontaneously and intact. No tears. EBL 100 ml. f\Final sponge and instrument count are correct. Mom and baby stable.
[2022-05-04] MEDS ORDERED: OXYTOCIN 30 UNITS/500 ML BAG IV PRN (05:46)
[2022-05-04] MEDS ORDERED: DIPHTHERIA/TETANUS/PERTUSSIS 0.5 ML SYR/VIAL IM ONE (05:46)
[2022-05-04] MEDS ORDERED: BENZOCAINE 20% AER SPR 82.5 GM CAN EXT PRN (05:46)
[2022-05-04] MEDS ORDERED: ACETAMINOPHEN 325 MG TAB PO PRN (05:46)
[2022-05-04] MEDS ORDERED: HYDROCORTISONE ACETATE 25 MG SUPP PR PRN (05:46)
--- NOTE | 2022-05-04 06:55 | Communication Note ---
Date of Service: May 04, 2022 prior to delivery, pt with increasing pain. bolused 4ml of 2% lido along with 100mcg fentanyl. nurse checked pt and she was complete and ready to deliver. dr cobian called to room.
[2022-05-04] MEDS: FERROUS SULFATE 325 MG TAB PO SCH (07:50)
[2022-05-04] MEDS: PRENATAL VITAMIN 1 TAB PO SCH (07:50)
[2022-05-04] MEDS: DOCUSATE SODIUM 100 MG CAP PO SCH ×2 (07:50→20:24)
--- NOTE | 2022-05-04 08:09 | Anesthesia Procedure Note ---
Date of Service May 04, 2022 Anesthesia Post Epidural Note Vital Signs Vital Signs: Temp Pulse Resp BP Pulse Ox 36.8 C 96 H 20 119/58 L 97 05/04/22 07:19 05/04/22 08:04 05/04/22 07:19 05/04/22 08:04 05/04/22 05:14 Pain Intensity Head: Pain Intensity: 1 Notes Mental Status: alert / awake / arousable and participated in evaluation Nausea / Vomiting: adequately controlled Pain: adequately controlled Airway Patency, RR, SpO2: stable & adequate BP & HR: stable & adequate Hydration State: stable & adequate Neuraxial Anesthesia: was administered and sensory block is resolving Anesthetic Complications: no major complications apparent and Pt Satisfied with anesthetic care Epidural: Removed without complications and With tip intact
[2022-05-04] MEDS ORDERED: NON-FORMULARY MEDICATION (Pnv Cmb#95-Ferrous Fumarate-Fa [Prenatal] 28 mg iron- 800 mcg Ta PO SCH (09:00)
[2022-05-04] MEDS: IBUPROFEN 600 MG TAB PO PRN ×3 (09:13→23:11)
[2022-05-04] MEDS: FOLIC ACID 1 MG TAB PO SCH (09:14)
[2022-05-04] MEDS: FAMOTIDINE 20 MG TAB PO SCH ×2 (09:14→20:24)
[2022-05-05 06:36] LABS: Hematocrit (blood only) 30.1 % (34.1-44.9); Hemoglobin 9.6 g/dl (12.0-16.0); Mean Corpuscular Hemoglobin 27.8 pg (25.0-34.0); Mean Corpuscular Hgb Conc 31.9 g/dL (32.0-36.0); Mean Corpuscular Volume 87.2 fL (80.0-100.0); Mean Platelet Volume 9.9 fL (9.4-12.3); Platelet Count 185 K/uL (130-400); RDW Coefficient of Variation 15.7 % (11.5-14.5); RDW Standard Deviation 49.4 fL (36.4-46.3); Red Blood Count 3.45 M/uL (3.93-5.22); White Blood Count 9.69 K/ul (4.8-10.8)
--- NOTE | 2022-05-05 06:59 | Obstetrical Progress Note ---
Date of Service May 05, 2022 Assessment & Plan (1) Normal course: Plan PPD #1 pt doing well wishes to be discharged home Results & Data ([facility]) Vital Signs (Past 12 Hours) Vital Signs Temp Pulse Resp BP Pulse Ox O2 Del Method 05/05/22 04:00 36.5 C 96 H 18 117/81 05/04/22 23:35 37 C 89 18 115/81 05/04/22 20:20 36.8 C 95 H 18 125/88 98 Room Air
[2022-05-05] MEDS: PRENATAL VITAMIN 1 TAB PO SCH (07:44)
[2022-05-05] MEDS: FERROUS SULFATE 325 MG TAB PO SCH (07:44)
[2022-05-05] MEDS: DOCUSATE SODIUM 100 MG CAP PO SCH (07:44)
[2022-05-05] MEDS: IBUPROFEN 600 MG TAB PO PRN (07:44)
[2022-05-05] MEDS: FOLIC ACID 1 MG TAB PO SCH (07:45)
[2022-05-05] MEDS ORDERED: MEASLES, MUMPS & RUBELLA VIRUS VIAL SQ ONE (09:30)
[2022-05-05] MEDS: FAMOTIDINE 20 MG TAB PO SCH (11:39)
[2022-05-05] MEDS ORDERED: bisacodyL 5 MG TABEC PO SCH (20:00)
[2022-05-06] MEDS ORDERED: bisacodyL 10 MG SUPP PR PRN
== END 2022-05-05 13:20 | disposition home or self-care (01) | DRG 807 ==
LOC: 4S1 13:11 → 4E2 05-04 08:40